=== PATIENT | female | born 1985 | race Asian ===

== ENCOUNTER 2016-07-04 19:59 | Emergency (ER) | payer OTHER ==
[~2016-07-04] VITALS: Ht 165.1 cm; Wt 57.2 kg
[2016-07-04 20:05] VITALS: TEMP 36.8; Ht 165.1 cm; Wt 57.2 kg
[2016-07-04] MEDS ORDERED: SODIUM CHLORIDE 0.9% 1000ML 1,000 ML IV STA (22:08)
[2016-07-04] MEDS ORDERED: OPTIRAY 320 IV PRN (22:15)
[2016-07-04] MEDS ORDERED: MULT-513 PO (22:31)
[2016-07-04 22:36] LABS: BASO % 0.2 %; BASO ABS # 0.01 K/uL (0-0.2); COMPLETE YES; EOS % 0.7 %; HEMATOCRIT 37.8 % (37-47); LYMPH % 44.9 %; LYMPH ABS # 2.47 K/uL (1.2-3.4); MEAN CELL VOLUME 89.8 fL (80-100); MEAN CORPUSCULAR HEMOGLOBIN 30.6 pg (25-34); MEAN CORPUSCULAR HGB CONC 34.1 g/dl (32-36); MEAN PLATELET VOLUME 10.8 fL (7.4-10.4); MONO % 8.5 %; NEUT % 45.7 %; PLATELET COUNT 198 K/uL (130-400); RED BLOOD COUNT 4.21 M/uL (4.2-5.4)
[2016-07-04 22:52] LABS: BUN/CREATININE RATIO 12.3 (10-20); CREATININE 0.53 mg/dl (0.60-1.20); POTASSIUM 3.4 mmol/L (3.5-5.1)
[2016-07-04 22:55] LABS: ALB/GLOB RATIO 1.3 (0.9-2)
[2016-07-05 01:10] LABS: URINE APPEARANCE CLEAR (CLEAR); URINE BILIRUBIN NEG (NEG); URINE COLOR YELLOW; URINE NITRITE NEG (NEG); URINE PH 6.5 (4.5-7.5); URINE SPECIFIC GRAVITY 1.005 (1.000-1.030); UROBILINOGEN NEG (NEG); ZZUR CULT IF INDIC CLEAN CATCH YES
[2016-07-05 01:11] LABS: MANUAL MICROSCOPIC REQUIRED? NO; REVIEW REQ? NO
--- NOTE | 2016-07-05 02:09 | EMERGENCY ROOM VISIT NOTE ---
History First contact with patient: 21:59 Chief Complaint: ABDOMINAL PAIN Stated Complaint: PAIN IN STOMACH Nursing Triage Summary: abd pain started today no n/v/d. History of Present Illness The patient is a 31 year old female who presents to the Emergency Department by private vehicle for evaluation of her RIGHT lower quadrant abdominal pain. She reports that this afternoon she developed pain in the lower abdomen with associated lightheadedness. She reports feeling nauseated, but has not vomited. She denies any bowel movements or diarrheal stools. She reports increasing pain in the RIGHT lower quadrant. She rates her current discomfort as a 4/10. She reports no previous surgeries to the abdomen. She denies any burning with urination or blood in her urine. She denies any chance for . She denies any chest pain, palpitations, shortness of breath, hematemesis, hematochezia, melena, hematuria, or dysuria. Review of Systems A complete 10-point Review of Systems was discussed with the patient, with pertinent positives and negatives listed in the History of Present Illness. All remaining Review of Systems questions can be considered negative unless otherwise specified. Past Medical/Surgical History Medical Problems: (1) History of - depression Family History Patient reports no known family medical history. Social History Smoking Status: Never Smoker Smokeless Tobacco Use: No Alcohol Use: none Drug Use: none Marital Status: single Housing Status: lives with roommate Occupation Status: [employer] student Current/Historical Medications Scheduled Multivitamins/Minerals (Mvi With Minerals), 1 TAB PO DAILY Allergies Coded Allergies: No Known Allergies (Unverified , 02/01/16) Physical Exam Vital Signs Date Time Temp Pulse Resp B/P Pulse Ox O2 Delivery O2 Flow Rate FiO2 07/05/16 02:24 65 18 99/62 98 07/04/16 23:51 104/65 07/04/16 20:05 36.8 69 18 121/85 100 Room Air Pain Rating (0-10): 4 Physical Exam VITAL SIGNS - Vital signs and nursing notes were reviewed. GENERAL - 31-year-old female appearing her stated age who is in no acute distress. Communicates well with provider and answers questions appropriately. LUNGS - Chest wall symmetric without accessory muscle use, intercostals retractions, or central cyanosis. Normal vesicular breath sounds CTA B/L. No wheezes, rales, or rhonchi appreciated. CARDIAC - RRR with S1/S2. No murmur, rubs, or gallops appreciated. ABDOMEN - Abdominal contour flat and without pulsations or visible masses. Negative Mil[place]'s or Funez Araiza's Signs. BS normoactive all four quadrants. Moderate tenderness to palpation appreciated in the RIGHT lower quadrant. No guarding. No Rebound Tenderness. Negative Rovsing's. Negative Juan's. No palpable masses, hepatosplenomegaly, or ascites noted. PSYCH - A&Ox3 and cooperates fully with examiner. Pt is very pleasant and interacts well with examiner. Medical Decision & Procedures ER Provider Diagnostic Interpretation: Radiological imaging and reports were reviewed by myself. Radiologist's Interpretation per [facility] as follows: US APPENDIX: Appendix not visualized, making evaluation nondiagnostic for acute appendicitis. Small amount of free fluid in the right lower quadrant. CT ABDOMEN & PELVIS: The appendix is normal in size, fills with contrast, and is without evidence of surrounding inflammatory change. Mild relative thickening of the tip of the appendix, but still within normal limits. Small amount of free fluid in the pelvis, nonspecific and possibly physiologic in a premenopausal female. Focal enhancement at the left adnexa may represent an involuting corpus luteal cyst. Ovaries are not enlarged. Uterus is retroflexed. Mild prominence of the renal collecting system bilaterally, but no evidence of stone or hydroureter. Persistent lobulation of the kidneys. Solid organs otherwise unremarkable. No bowel obstruction. Laboratory Results 07/04/16 22:15 Red Blood Count 4.21, Mean Corpuscular Volume 89.8, Mean Corpuscular Hemoglobin 30.6, Mean Corpuscular Hemoglobin Concent 34.1, Mean Platelet Volume 10.8, Neutrophils (%) (Auto) 45.7, Lymphocytes (%) (Auto) 44.9, Monocytes (%) (Auto) 8.5, Eosinophils (%) (Auto) 0.7, Basophils (%) (Auto) 0.2, Neutrophils # (Auto) 2.51, Lymphocytes # (Auto) 2.47, Monocytes # (Auto) 0.47, Eosinophils # (Auto) 0.04, Basophils # (Auto) 0.01 07/04/16 22:15 Test 07/04/16 22:15 07/05/16 00:50 White Blood Count 5.50 K/uL (4.8-10.8) Red Blood Count 4.21 M/uL (4.2-5.4) Hemoglobin 12.9 g/dL (12.0-16.0) Hematocrit 37.8 % (37-47) Mean Corpuscular Volume 89.8 fL (80-100) Mean Corpuscular Hemoglobin 30.6 pg (25-34) Mean Corpuscular Hemoglobin Concent 34.1 g/dl (32-36) Platelet Count 198 K/uL (130-400) Mean Platelet Volume 10.8 fL (7.4-10.4) Neutrophils (%) (Auto) 45.7 % Lymphocytes (%) (Auto) 44.9 % Monocytes (%) (Auto) 8.5 % Eosinophils (%) (Auto) 0.7 % Basophils (%) (Auto) 0.2 % Neutrophils # (Auto) 2.51 K/uL (1.4-6.5) Lymphocytes # (Auto) 2.47 K/uL (1.2-3.4) Monocytes # (Auto) 0.47 K/uL (0.11-0.59) Eosinophils # (Auto) 0.04 K/uL (0-0.5) Basophils # (Auto) 0.01 K/uL (0-0.2) RDW Standard Deviation 41.8 fL (36.4-46.3) RDW Coefficient of Variation 12.9 % (11.5-14.5) Immature Granulocyte % (Auto) 0.0 % Immature Granulocyte # (Auto) 0.00 K/uL (0.00-0.02) Anion Gap 7.0 mmol/L (3-11) Est Creatinine Clear Calc Drug Dose 137.1 ml/min Estimated GFR () 145.6 Estimated GFR (Non- 125.6 BUN/Creatinine Ratio 12.3 (10-20) Calcium Level 9.0 mg/dl (8.5-10.1) Magnesium Level 2.0 mg/dl (1.8-2.4) Total Bilirubin 0.7 mg/dl (0.2-1) Aspartate Amino Transf (AST/SGOT) 33 U/L (15-37) Alanine Aminotransferase (ALT/SGPT) 58 U/L (12-78) Alkaline Phosphatase 58 U/L (45-117) Total Protein 7.8 gm/dl (6.4-8.2) Albumin 4.4 gm/dl (3.4-5.0) Globulin 3.4 gm/dl (2.5-4.0) Albumin/Globulin Ratio 1.3 (0.9-2) Lipase 130 U/L (73-393) Urine Color YELLOW Urine Appearance CLEAR (CLEAR) Urine pH 6.5 (4.5-7.5) Urine Specific [place] 1.005 (1.000-1.030) Urine Protein NEG (NEG) Urine Glucose (UA) NEG (NEG) Urine Ketones 2+ (NEG) Urine Occult Blood TRACE (NEG) Urine Nitrite NEG (NEG) Urine Bilirubin NEG (NEG) Urine Urobilinogen NEG (NEG) Urine Leukocyte Esterase LARGE (NEG) Urine WBC (Auto) 10-30 /hpf (0-5) Urine RBC (Auto) 0-4 /hpf (0-4) Urine Hyaline Casts (Auto) 1-5 /lpf (0-5) Urine Epithelial Cells (Auto) 10-20 /lpf (0-5) Urine Bacteria (Auto) NEG (NEG) Urine Test NEG (NEG) Medications Administered Medications (Trade) Dose Ordered Sig/Dawson Route Start Time Stop Time Status Last Admin Dose Admin Sodium Chloride (Nss 1000ml) 1,000 ml @ 125 mls/hr Q8H STAT IV 07/04/16 22:08 07/05/16 03:31 DC 07/04/16 23:52 125 MLS/HR ED Course Patient was seen and evaluated by myself. Labs were drawn, saline lock in place. Patient was hydrated with normal saline at a rate of 125 mL per hour. Patient declines anything for pain. Abdominal ultrasound and CT of the abdomen/ pelvis ordered. Laboratory results demonstrate no acute leukocytosis, worrisome anemia, or bandemia. The patient has no significant electrolyte abnormalities. Urinalysis does not suggest infection. Ultrasound was not diagnostic. CT results demonstrate no acute findings. Laboratory results and imaging studies were reviewed with the patient who acknowledges understanding. The patient was educated on worrisome symptoms for return visit to the emergency department. Patient discharged home afebrile and in good condition. Medical Decision Given the patient's presentation and stated complaints, I did elect to perform the above-mentioned workup. The patient presents with pain in the RIGHT lower quadrant. She has no fever. She has no leukocytosis. She has no rebound guarding or rigidity. CT and ultrasounds demonstrate no acute findings otherwise. Patient was educated on today's findings. She was provided a note for class. She was educated on worrisome symptoms for return visit to the emergency department. Patient discharged home afebrile and in good condition. In the evaluation and treatment of this patient, the following differential diagnoses were considered: Appendicitis, Diverticulitis, Diverticulosis, Colitis , Ischemic Colitis, Inflammatory Bowel Disease, Irritable Bowel Disease, Ovarian Torsion, , Ectopic , Kidney Stone, Pyelonephritis, Hydronephrosis, Cholecystitis, Ascending Cholangitis, Choledocholithiasis, GERD. Impression Primary Impression: Abdominal pain Departure Information Dispostion Home / Self-Care Condition GOOD Referrals No Doctor, Assigned (PCP) Patient Instructions Abdominal Pain - [facility], [facility] Additional Instructions You have been treated in the Emergency Department your Abdominal Pain. Laboratory results and imaging studies have ruled out any emergent causes for your abdominal pain which would warrant admission or surgery. For pain control, you can use the following xoei-tow-wgihrkn medicines (if >12 yo): - Regular strength (325mg/tab) Tylenol (acetaminophen) 2 tabs every 4-6 hours as needed. Do not exceed 12 tablets in a 24 hour period. Avoid taking more than 4 grams (4000 mg) of Tylenol per day. This includes any other sources of acetaminophen you may take on a regular basis. - Regular strength (200 mg/tab) Advil (ibuprofen) 1-2 tabs every 4-6 hours as needed. Do not exceed a dose of 3200 mg per day. Drink plenty of water and stay well hydrated. As with any trip to the Emergency Department, you should follow-up with your Primary Care Provider from today's visit. Return to the emergency department if your symptoms persist despite treatment plan outlined above or if the following symptoms occur: increased fevers, chills , worsening nausea/vomiting, blood in your stool or urine. Problem Qualifiers Primary Impression: Abdominal pain Abdominal location: right lower quadrant Qualified Codes: R10.31 - Right lower quadrant pain
[2016-07-05 02:24] VITALS: BP 99/62; PULSE 65; O2SAT 98
--- NOTE | 2016-07-05 06:36 | DIAGNOSTIC IMAGING REPORT ---
APPENDIX ULTRASOUND HISTORY: Right lower quadrant pain. COMPARISON: None. FINDINGS: The appendix was not visualized. A small amount of fluid was noted within the right lower quadrant. IMPRESSION: 1. Nonvisualization of the appendix. This study is nondiagnostic in regards to evaluation for acute appendicitis. 2. Small amount of free fluid within the right lower quadrant. Electronically signed by: Stephan Delarosa M.D. 07/05/2016 6:35 AM Dictated Date/Time: 07/05/2016 6:34 AM
--- NOTE | 2016-07-05 06:53 | DIAGNOSTIC IMAGING REPORT ---
CT OF THE ABDOMEN AND PELVIS WITH CONTRAST CLINICAL HISTORY: Right lower quadrant abdominal pain. COMPARISON STUDY: Right lower quadrant ultrasound July 04, 2016. TECHNIQUE: Following IV administration of 91 mL of Optiray-320, axial images of the abdomen and pelvis were obtained from the lung bases to the proximal femurs. Images were reviewed in the axial, sagittal, and coronal planes. IV contrast was administered without complication. Oral contrast was administered. CT DOSE: 286.60 mGycm FINDINGS: No pneumatosis, free air or portal venous gas is present. The liver, spleen, adrenal glands and pancreas are unremarkable. There is mild prominence of both collecting systems which is symmetric. Both nephrograms are symmetric. There is no evidence for a bowel obstruction. The appendix is normal. A small amount of fluid within the pelvis is noted. No lymphadenopathy is noted. There is no biliary or pancreatic ductal dilatation. No peripancreatic or pericholecystic infiltration is present. Skeletal structures are unremarkable. IMPRESSION: 1. Normal appendix. 2. Small amount of fluid within the pelvis. 3. Prominence of both collecting systems, a finding of doubtful significance. Electronically signed by: Stephan Delarosa M.D. 07/05/2016 6:52 AM Dictated Date/Time: 07/05/2016 6:48 AM
== END 2016-07-05 02:24 | disposition home or self-care (01) ==
LOC: C.EDB 20:00 → C.EDC 07-05 02:24
DX: R10.31 Right lower quadrant pain (principal); R42 Dizziness and giddiness; R11.0 Nausea; Z86.59 Personal history of other mental and behavioral disorders

== ENCOUNTER 2016-07-06 23:52 | Emergency (ER) | payer OTHER ==
[~2016-07-06] VITALS: Ht 165.1 cm; Wt 57.9 kg
[~2016-07-06 23:52] MED LIST: MULT-513 PO
[2016-07-07 00:01] VITALS: TEMP 36.4; Ht 165.1 cm; Wt 57.9 kg
[2016-07-07] MEDS ORDERED: SODIUM CHLORIDE 0.9% 1000ML 1,000 ML IV STA (00:39)
[2016-07-07] MEDS ORDERED: ONDANSETRON INJ 2 MG/ML 2 ML VIAL IV STA (00:39)
[2016-07-07 01:00] LABS: BASO % 0.2 %; BASO ABS # 0.01 K/uL (0-0.2); COMPLETE YES; EOS % 0.7 %; HEMATOCRIT 33.2 % (37-47); IG% 0.2 %; LYMPH % 43.8 %; LYMPH ABS # 2.38 K/uL (1.2-3.4); MEAN CELL VOLUME 87.4 fL (80-100); MEAN CORPUSCULAR HEMOGLOBIN 30.5 pg (25-34); MEAN CORPUSCULAR HGB CONC 34.9 g/dl (32-36); MEAN PLATELET VOLUME 10.9 fL (7.4-10.4); NEUT % 43.1 %; PLATELET COUNT 200 K/uL (130-400); WHITE BLOOD COUNT 5.43 K/uL (4.8-10.8)
[2016-07-07 01:08] LABS: BUN/CREATININE RATIO 17.6 (10-20); CALCIUM 8.4 mg/dl (8.5-10.1); CREATININE 0.55 mg/dl (0.60-1.20); POTASSIUM 3.5 mmol/L (3.5-5.1)
[2016-07-07 01:11] LABS: ALB/GLOB RATIO 1.3 (0.9-2)
[2016-07-07 01:30] LABS: URINE APPEARANCE CLEAR (CLEAR); URINE BILIRUBIN NEG (NEG); URINE COLOR YELLOW; URINE EPITHELIAL CELL AUTO 20-30 /lpf (0-5); URINE NITRITE NEG (NEG); URINE PH 5.5 (4.5-7.5); URINE SPECIFIC GRAVITY 1.024 (1.000-1.030); UROBILINOGEN NEG (NEG); ZZUR CULT IF INDIC CLEAN CATCH NO
[2016-07-07] MEDS ORDERED: ONDANSETRON HOME PACK 4MG OD TAB PO ONE (01:30)
[2016-07-07 01:36] LABS: MANUAL MICROSCOPIC REQUIRED? NO; REVIEW REQ? NO
--- NOTE | 2016-07-07 01:44 | EMERGENCY ROOM VISIT NOTE ---
History First contact with patient: 00:29 Chief Complaint: VOMITING Stated Complaint: VOMITING Nursing Triage Summary: pt reports nausea from Sunday. Unable to eat, "I feel uncomfortable in my body". pt also reports "strange poop color, like green and string". RLQ pain History of Present Illness The patient is a 31 year old female who presents to the Emergency Department by private vehicle for evaluation of her ongoing diarrhea and decreased by mouth intake. She was seen in this facility earlier this week and had unremarkable imaging studies performed. She reports occasional pain in the lower abdomen. She reports no fevers or chills. She denies any vomiting. She does report occasional nausea. She rates her current discomfort as an 8/10. She denies any headaches, distance, lightheadedness, chest pain, palpitations, short of breath, hematemesis, hematochezia, melena, hematuria, or dysuria. Review of Systems A complete 10-point Review of Systems was discussed with the patient, with pertinent positives and negatives listed in the History of Present Illness. All remaining Review of Systems questions can be considered negative unless otherwise specified. Past Medical/Surgical History Medical Problems: (1) History of - depression Family History Patient reports no known family medical history. Social History Smoking Status: Never Smoker Smokeless Tobacco Use: No Alcohol Use: none Drug Use: none Marital Status: single Housing Status: lives with roommate Occupation Status: [employer] student Current/Historical Medications Scheduled Multivitamins/Minerals (Mvi With Minerals), 1 TAB PO DAILY Allergies Coded Allergies: No Known Allergies (Unverified , 07/07/16) Physical Exam Vital Signs Date Time Temp Pulse Resp B/P Pulse Ox O2 Delivery O2 Flow Rate FiO2 07/07/16 02:04 81 18 119/73 100 07/07/16 00:01 36.4 88 16 114/77 99 Room Air Pain Rating (0-10): 8 Physical Exam VITAL SIGNS - Vital signs and nursing notes were reviewed. GENERAL - 31-year-old female appearing younger than her her stated age who is in no acute distress. Communicates well with provider and answers questions appropriately. LUNGS - Chest wall symmetric without accessory muscle use, intercostals retractions, or central cyanosis. Normal vesicular breath sounds CTA B/L. No wheezes, rales, or rhonchi appreciated. CARDIAC - RRR with S1/S2. No murmur, rubs, or gallops appreciated. ABDOMEN - Abdominal contour flat and without pulsations or visible masses. BS normoactive all four quadrants. No tenderness to palpation appreciated throughout. No guarding. No Rebound Tenderness. Negative Rovsing's. Negative Juan's. No palpable masses, hepatosplenomegaly, or ascites noted. PSYCH - A&Ox3 and cooperates fully with examiner. Pt is very pleasant and interacts well with examiner. Medical Decision & Procedures Laboratory Results 07/07/16 00:35 Red Blood Count 3.80, Mean Corpuscular Volume 87.4, Mean Corpuscular Hemoglobin 30.5, Mean Corpuscular Hemoglobin Concent 34.9, Mean Platelet Volume 10.9, Neutrophils (%) (Auto) 43.1, Lymphocytes (%) (Auto) 43.8, Monocytes (%) (Auto) 12.0, Eosinophils (%) (Auto) 0.7, Basophils (%) (Auto) 0.2, Neutrophils # (Auto ) 2.34, Lymphocytes # (Auto) 2.38, Monocytes # (Auto) 0.65, Eosinophils # (Auto ) 0.04, Basophils # (Auto) 0.01 07/07/16 00:35 Test 07/07/16 00:35 White Blood Count 5.43 K/uL (4.8-10.8) Red Blood Count 3.80 M/uL (4.2-5.4) Hemoglobin 11.6 g/dL (12.0-16.0) Hematocrit 33.2 % (37-47) Mean Corpuscular Volume 87.4 fL (80-100) Mean Corpuscular Hemoglobin 30.5 pg (25-34) Mean Corpuscular Hemoglobin Concent 34.9 g/dl (32-36) Platelet Count 200 K/uL (130-400) Mean Platelet Volume 10.9 fL (7.4-10.4) Neutrophils (%) (Auto) 43.1 % Lymphocytes (%) (Auto) 43.8 % Monocytes (%) (Auto) 12.0 % Eosinophils (%) (Auto) 0.7 % Basophils (%) (Auto) 0.2 % Neutrophils # (Auto) 2.34 K/uL (1.4-6.5) Lymphocytes # (Auto) 2.38 K/uL (1.2-3.4) Monocytes # (Auto) 0.65 K/uL (0.11-0.59) Eosinophils # (Auto) 0.04 K/uL (0-0.5) Basophils # (Auto) 0.01 K/uL (0-0.2) RDW Standard Deviation 41.0 fL (36.4-46.3) RDW Coefficient of Variation 12.8 % (11.5-14.5) Immature Granulocyte % (Auto) 0.2 % Immature Granulocyte # (Auto) 0.01 K/uL (0.00-0.02) Urine Color YELLOW Urine Appearance CLEAR (CLEAR) Urine pH 5.5 (4.5-7.5) Urine Specific [place] 1.024 (1.000-1.030) Urine Protein NEG (NEG) Urine Glucose (UA) 1+ (NEG) Urine Ketones NEG (NEG) Urine Occult Blood NEG (NEG) Urine Nitrite NEG (NEG) Urine Bilirubin NEG (NEG) Urine Urobilinogen NEG (NEG) Urine Leukocyte Esterase TRACE (NEG) Urine WBC (Auto) 1-5 /hpf (0-5) Urine RBC (Auto) 0-4 /hpf (0-4) Urine Hyaline Casts (Auto) 1-5 /lpf (0-5) Urine Epithelial Cells (Auto) 20-30 /lpf (0-5) Urine Bacteria (Auto) NEG (NEG) Anion Gap 8.0 mmol/L (3-11) Est Creatinine Clear Calc Drug Dose 132.1 ml/min Estimated GFR () 143.8 Estimated GFR (Non- 124.1 BUN/Creatinine Ratio 17.6 (10-20) Calcium Level 8.4 mg/dl (8.5-10.1) Total Bilirubin 0.3 mg/dl (0.2-1) Aspartate Amino Transf (AST/SGOT) 21 U/L (15-37) Alanine Aminotransferase (ALT/SGPT) 43 U/L (12-78) Alkaline Phosphatase 62 U/L (45-117) Total Protein 7.2 gm/dl (6.4-8.2) Albumin 4.0 gm/dl (3.4-5.0) Globulin 3.2 gm/dl (2.5-4.0) Albumin/Globulin Ratio 1.3 (0.9-2) Medications Administered Medications (Trade) Dose Ordered Sig/Dawson Route Start Time Stop Time Status Last Admin Dose Admin Sodium Chloride (Nss 1000ml) 1,000 ml @ 999 mls/hr Q1H1M STAT IV 07/07/16 00:39 07/07/16 01:39 DC 07/07/16 00:39 999 MLS/HR Ondansetron HCl (Zofran Inj) 4 mg NOW STAT IV 07/07/16 00:39 07/07/16 00:41 DC 07/07/16 00:39 4 MG Ondansetron HCl (ZOFRAN ODT 4MG Home Pack) 1 homepack UD ONCE PO 07/07/16 01:30 07/07/16 01:31 DC 07/07/16 01:30 1 HOMEPACK ED Course Patient was seen and evaluated by myself. Previous emergency department visit notes were reviewed. Labs were drawn, saline lock in place. The patient received 4 mg Zofran intravenously and 1 L of normal saline. Laboratory results demonstrate no acute leukocytosis, worrisome anemia, or bandemia. Urinalysis does not suggest infection. Patient was educated on laboratory results. She was educated on following up with [facility] from today's visit. She was educated on worrisome symptoms for return visit to the emergency department. Patient discharged home afebrile and in good condition. Medical Decision Given the patient's presentation and stated complaints, I did elect to perform the above-mentioned workup. The patient presents today with ongoing symptoms of nausea as well as diarrhea. She complains of pain. Abdomen is soft and nontender to palpation. She had an unremarkable evaluation a few days ago with unremarkable imaging studies. Repeat labs are negative. I questioned the patient is utilizing the emergency Department for notes for school as this did appear to be her primary concern. Regardless, her symptoms are not concerning this point in her labs are unremarkable. Patient was educated on worrisome symptoms for return visit to the emergency department. Patient discharged home afebrile and in good condition. In the evaluation and treatment of this patient, the following differential diagnoses were considered: Appendicitis, diverticulitis, diverticulosis, ovarian torsion, ruptured ovarian cyst, UTI, or truancy. Impression Primary Impression: Diarrhea Additional Impressions: Vomiting Abdominal pain Departure Information Dispostion Home / Self-Care Condition GOOD Referrals No Doctor, Assigned (PCP) Patient Instructions My [facility] Additional Instructions Follow-up with [facility] from today's visit. Return for any changing or worsening symptoms. Problem Qualifiers Primary Impression: Diarrhea Diarrhea type: unspecified type Qualified Codes: R19.7 - Diarrhea, unspecified Additional Impressions: Vomiting Vomiting type: unspecified Vomiting Intractability: non-intractable Nausea presence: with nausea Qualified Codes: R11.2 - Nausea with vomiting, unspecified Abdominal pain Abdominal location: right lower quadrant Qualified Codes: R10.31 - Right lower quadrant pain
[2016-07-07 02:04] VITALS: BP 119/73; PULSE 81; O2SAT 100
[2017-02-15] MEDS ORDERED: MULT-513 PO (21:08)
[2017-02-16] MEDS ORDERED: CEPH500C2 PO (00:55)
== END 2016-07-07 02:05 | disposition home or self-care (01) ==
LOC: C.EDB 23:53 → C.EDA 07-07 02:05
DX: R19.7 Diarrhea, unspecified (principal); R11.10 Vomiting, unspecified; R10.9 Unspecified abdominal pain; F32.9 Major depressive disorder, single episode, unspecified

== ENCOUNTER 2016-07-22 22:49 | Emergency (ER) | payer OTHER ==
[~2016-07-22] VITALS: Ht 165.1 cm; Wt 59.0 kg
[2016-07-22 22:53] VITALS: TEMP 36.9; Ht 165.1 cm; Wt 59.0 kg
[2016-07-22] MEDS ORDERED: IBUPROFEN 600 MG TAB PO STA (23:15)
--- NOTE | 2016-07-22 23:16 | EMERGENCY ROOM VISIT NOTE ---
History Report prepared by Miranda: Belle Liang Under the Supervision of: Dr. Jaden Mo M.D. First contact with patient: 23:03 Chief Complaint: FALL Stated Complaint: RT LEG/ANKLE/HAND PAIN,POSSIBLE HEAD History of Present Illness The patient is a 31 year old female who presents to the Emergency Room with complaints of a fall that occurred prior to arrival. She reports she fell down some steps earlier tonight. She landed on her hands and knees. She complains of bilateral leg pain and hand pain, rating her discomfort as a 10/10. She can still bend both ankles, but can only bend her left knee. Bending the right knee causes too much pain. She denies any hip pain. She can bend all of fingers, but notes they are "a little sore" from abrasions she sustained during the fall. 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 A total of 10 systems reviewed and were otherwise negative. Past Medical & Surgical Medical Problems: (1) No significant past medical history Social History Smoking Status: Never Smoker Alcohol Use: occasionally Drug Use: none Marital Status: single Housing Status: lives alone Occupation Status: [employer] student Current/Historical Medications No Active Prescriptions or Reported Meds Allergies Coded Allergies: No Known Allergies (Unverified , 07/22/16) Physical Exam Vital Signs Date Time Temp Pulse Resp B/P Pulse Ox O2 Delivery O2 Flow Rate FiO2 07/23/16 00:21 71 20 115/70 100 07/22/16 22:53 36.9 71 20 127/86 99 Room Air Physical Exam GENERAL: Patient is a healthy-appearing well-nourished 31 year old female HEAD: Normocephalic atraumatic EYES: Ocular movements intact pupils equal and react to light OROPHARYNX mucous membranes are moist no exudates present no erythema or edema present NECK: Supple no nuchal rigidity CHEST: Good equal expansion LUNGS: Clear and equal to auscultation CARDIAC: Normal S1 and S2 ABDOMEN: Soft nontender no guarding BACK: No CVA tenderness EXTREMITIES: Patient can move the right hip and right ankle free from pain. Right foot is neurovascularly intact. She complains of pain when bending right knee. Road rash to bilateral hands. She complains of pain to the left 4th finger , she is able to bend this finger. Normal muscle strength in all groups no clubbing cyanosis or edema NEURO: Patient is following commands is answering questions appropriately. Alert and oriented x3 Cranial Nerves 2-12 grossly intact Medical Decision & Procedures ER Provider Diagnostic Interpretation: These X-Rays were reviewed and interpreted by myself as we do not have a radiologist on staff overnight. FINGER X-RAY, 3 VIEW, LEFT 4TH FINGER There is no evidence of acute fracture, dislocation or subluxation. KNEE X-RAY, 2 VIEW, RIGHT KNEE There is no evidence of acute fracture, dislocation or subluxation. Medications Administered Medications (Trade) Dose Ordered Sig/Dawson Route Start Time Stop Time Status Last Admin Dose Admin Ibuprofen (Motrin Tab) 600 mg NOW STAT PO 07/22/16 23:15 07/22/16 23:17 DC 07/22/16 23:23 600 MG ED Course 2308: Past medical records reviewed. The patient was evaluated in room A2. A complete history and physical examination was performed. 2315: Ibuprofen 600 mg PO. 0000: I reevaluated the patient. She is feeling better. I discussed her results and discharge instructions and she verbalized complete understanding and agreement. Medical Decision This is a 31-year-old female who presents emergency department after a fall. The patient is complaining of abrasions to her hands as well as right knee pain. The patient was sent for x-rays as above. She'll be placed on crutches as well as a splint for her finger. I recommended that the patient follow-up with orthopedics if she still continue to have pain. The patient was given ibuprofen in the emergency department. Repeat examination revealed improvement patient's symptoms. Patient was in agreement with the treatment plan. Impression Primary Impression: Fall Additional Impressions: Knee pain Finger pain Scribe Attestation The scribe's documentation has been prepared under my direction and personally reviewed by me in its entirety. I confirm that the note above accurately reflects all work, treatment, procedures, and medical decision making performed by me. Departure Information Dispostion Home / Self-Care Prescriptions No Active Prescriptions or Reported Meds Referrals No Doctor, Assigned (PCP) Patient Instructions ED Knee Pain [facility], My [facility], Swelling Knee Pain Reduce Additional Instructions Follow up with DR Velez's office for continued pain Take 600 mg of ibuprofen every 6 hours as needed You have been examined and treated today on an emergency basis only. This is not a substitute for, or an effort to provide, complete comprehensive medical care. It is impossible to recognize and treat all injuries or illnesses in a single emergency department visit. It is therefore important that you follow up closely with [facility]. Call as soon as possible for an appointment. Thank you for your time and consideration. I look forward to speaking with you again soon. Please don't hesitate to call us if you have any questions. Problem Qualifiers Primary Impression: Fall Encounter type: initial encounter Qualified Codes: W19.XXXA - Unspecified fall, initial encounter Additional Impressions: Knee pain Laterality: right Chronicity: acute Qualified Codes: M25.561 - Pain in right knee Finger pain Laterality: left Qualified Codes: M79.645 - Pain in left finger(s)
[2016-07-23 00:21] VITALS: BP 115/70; PULSE 71; O2SAT 100
--- NOTE | 2016-07-23 07:55 | DIAGNOSTIC IMAGING REPORT ---
LEFT FOURTH FINGER 3 VIEWS CLINICAL HISTORY: Fall with fourth finger pain. FINDINGS: 3 views of the left fourth finger are obtained. No prior studies are available for comparison at the time of dictation. The skeletal structures are well mineralized. No fracture is seen. The fourth metacarpophalangeal and interphalangeal joints are well-maintained. Mild soft tissue swelling is suggested around the proximal interphalangeal joint. IMPRESSION: Mild soft tissue swelling with no radiographic evidence of fracture in the left fourth finger. Electronically signed by: Jeffrey Lance M.D. 07/23/2016 7:53 AM Dictated Date/Time: 07/23/2016 7:52 AM
--- NOTE | 2016-07-23 07:56 | DIAGNOSTIC IMAGING REPORT ---
RIGHT KNEE 2 VIEWS CLINICAL HISTORY: Fall with right knee pain. FINDINGS: AP and crosstable lateral views of the right knee are obtained. No prior studies are available for comparison at the time of dictation. The skeletal structures are well mineralized. No fracture is seen. The joint spaces of the knee appear well-maintained. Mild prepatellar soft tissue swelling is noted. A small joint effusion is suspected. Dermal calcifications are noted below the patella. IMPRESSION: Prepatellar soft tissue swelling and small joint effusion. No fracture is seen. Electronically signed by: Jeffrey Lance M.D. 07/23/2016 7:54 AM Dictated Date/Time: 07/23/2016 7:53 AM
[2017-02-15] MEDS ORDERED: MULT-513 PO (21:08)
[2017-02-16] MEDS ORDERED: CEPH500C2 PO (00:55)
== END 2016-07-23 00:24 | disposition home or self-care (01) ==
LOC: EDBD 22:51 → C.EDB 22:51 → MERGE 22:51 → C.EDA 07-23 00:24
DX: M25.561 Pain in right knee (principal); M79.645 Pain in left finger(s); W10.9XXA Fall (on) (from) unspecified stairs and steps, initial encounter

== ENCOUNTER 2016-08-11 21:43 | Emergency (ER) | payer OTHER ==
[~2016-08-11] VITALS: Ht 165.1 cm; Wt 55.7 kg
[2016-08-11 21:53] VITALS: TEMP 36.3; Ht 165.1 cm; Wt 55.7 kg
[2016-08-11] MEDS ORDERED: KETOROLAC TROMETHAMINE 30 MG/ML VIAL IV STA (22:20)
[2016-08-11] MEDS ORDERED: SODIUM CHLORIDE 0.9% 1000ML 1,000 ML IV ONE (22:30)
[2016-08-11 22:51] LABS: BASO % 0.3 %; BASO ABS # 0.02 K/uL (0-0.2); COMPLETE YES; EOS % 0.8 %; HEMATOCRIT 37.1 % (37-47); IG% 0.2 %; LYMPH % 43.7 %; LYMPH ABS # 2.76 K/uL (1.2-3.4); MEAN CELL VOLUME 92.1 fL (80-100); MEAN CORPUSCULAR HEMOGLOBIN 30.3 pg (25-34); MEAN CORPUSCULAR HGB CONC 32.9 g/dl (32-36); MEAN PLATELET VOLUME 10.3 fL (7.4-10.4); MONO % 6.3 %; NEUT % 48.7 %; PLATELET COUNT 266 K/uL (130-400); RED BLOOD COUNT 4.03 M/uL (4.2-5.4); WHITE BLOOD COUNT 6.32 K/uL (4.8-10.8)
[2016-08-11 23:12] LABS: ALT/SGPT 21 U/L (12-78); AST/SGOT 14 U/L (15-37); BLOOD UREA NITROGEN 9 mg/dl (7-18); BUN/CREATININE RATIO 18.2 (10-20); CALCIUM 8.9 mg/dl (8.5-10.1); CARBON DIOXIDE 29 mmol/L (21-32); CHLORIDE 106 mmol/L (98-107); CREATININE 0.49 mg/dl (0.60-1.20); GLUCOSE 75 mg/dl (70-99); POTASSIUM 3.6 mmol/L (3.5-5.1); SODIUM 142 mmol/L (136-145)
[2016-08-11 23:23] LABS: ALB/GLOB RATIO 1.2 (0.9-2); ALKALINE PHOSPHATASE 58 U/L (45-117)
[2016-08-12] MEDS ORDERED: AMOX875T PO (01:20)
[2016-08-12] MEDS ORDERED: AMOXICIL/CLAVU 875MG HOME PACK PO ONE (01:30)
[2016-08-12 01:46] VITALS: BP 118/59; PULSE 62; O2SAT 100
--- NOTE | 2016-08-12 05:26 | DIAGNOSTIC IMAGING REPORT ---
CHEST 2 VIEWS ROUTINE CLINICAL HISTORY: Cough dyspnea COMPARISON STUDY: 02/01/2016 FINDINGS: The bones soft tissues and hemidiaphragms are normal. The cardiomediastinal silhouette is normal. The lungs are clear. The pulmonary vasculature is normal. IMPRESSION: Negative chest. Electronically signed by: Gio Costa M.D. 08/12/2016 5:25 AM Dictated Date/Time: 08/12/2016 5:25 AM
--- NOTE | 2016-08-12 05:29 | DIAGNOSTIC IMAGING REPORT ---
HEAD CT NONCONTRAST CT DOSE: 614.27 mGy.cm HISTORY: Mental status change Dizzy TECHNIQUE: Multiaxial CT images of the head were performed without the use of intravenous contrast. Comparison: None. Findings: The paranasal sinuses and mastoid air cells are clear. The calvarium and skull base are intact. The ventricles and sulci are within normal limits. There is no mass, hematoma, midline shift, or acute infarct. Impression: No acute intracranial abnormality. Several mucosal retention cysts of the maxillary sinuses Electronically signed by: Gio Costa M.D. 08/12/2016 5:28 AM Dictated Date/Time: 08/12/2016 5:27 AM
--- NOTE | 2016-08-12 07:28 | EMERGENCY ROOM VISIT NOTE ---
History First contact with patient: 22:12 Chief Complaint: DIZZY Stated Complaint: PAINFUL AND DIZZY,SICK IN STOMACH, BRAIN NOT FUNCT History of Present Illness The patient is a 31 year old female who presents to the Emergency Room with complaints of dizziness, cough, and upset stomach for the past one day. She does not report fever or chills. She has had some sinus congestion. She is without distinct chest pain or shortness of breath. She has been eating, drinking, and using bathroom as normal. The patient considers herself usually healthy and has not taken anything [id number] for her symptoms. Review of Systems More than 10 systems were reviewed and otherwise negative with the exception of history of present illness. Past Medical/Surgical History Medical Problems: (1) History of - depression (2) No significant past medical history Family History Patient reports no known family medical history. Social History Smoking Status: Never Smoker Alcohol Use: occasionally Drug Use: none Marital Status: single Housing Status: lives alone Occupation Status: [employer] student Current/Historical Medications Scheduled Amoxicillin & Pot Clavulanate (Augmentin 875-125 mg), 1 TAB PO BID Allergies Coded Allergies: No Known Allergies (Unverified , 07/07/16) Physical Exam Vital Signs Date Time Temp Pulse Resp B/P Pulse Ox O2 Delivery O2 Flow Rate FiO2 08/12/16 01:46 62 18 118/59 100 08/11/16 23:51 65 18 123/80 100 Room Air 08/11/16 22:45 65 110/79 67 114/89 08/11/16 21:53 36.3 57 19 110/69 100 Room Air Pain Rating (0-10): 0 Physical Exam VITALS: Vitals are noted on the nurse's note and reviewed by myself. Vital signs stable. GENERAL: Well-developed, well-nourished, female, who is in no acute distress and resting comfortably. Patient is cooperative with the examination. HEAD: Normocephalic atraumatic. EARS: External ear normal. External auditory canals clear, tympanic membranes pearly ruano without erythema or effusion bilaterally. EYES: Pupils equal round and reactive to light and accommodation. Conjunctivae without injection, sclerae without icterus. Extraocular movements intact. NOSE: Patent, turbinates without inflammation or discharge. MOUTH: Mucous membranes moist. Tonsils are not enlarged. Pharynx without erythema, blood, or exudate. Uvula midline. Airway patent. NECK: Supple without nuchal rigidity. No lymphadenopathy. No thyromegaly. Cervical spine is nontender. HEART: Regular rate and rhythm without murmurs gallops or rubs. LUNGS: Clear to auscultation bilaterally without wheezes, rales or rhonchi. No retractions or accessory muscle use. ABDOMEN: Positive normal bowel sounds x 4. Soft, nontender, without masses or organomegaly. No guarding or rebound tenderness. MUSCULOSKELETAL: No muscle atrophy, erythema, or edema noted. Full range of motion without joint tenderness in all extremities. No tenderness to palpation. Normal gait. Strength 5/5 throughout. NEURO: Patient was alert and oriented to person place and time. CN II through XII grossly intact. Medical Decision & Procedures ER Provider Diagnostic Interpretation: HEAD CT NONCONTRAST CT DOSE: 614.27 mGy.cm HISTORY: Mental status change Dizzy TECHNIQUE: Multiaxial CT images of the head were performed without the use of intravenous contrast. Comparison: None. Findings: The paranasal sinuses and mastoid air cells are clear. The calvarium and skull base are intact. The ventricles and sulci are within normal limits. There is no mass, hematoma, midline shift, or acute infarct. Impression: No acute intracranial abnormality. Several mucosal retention cysts of the maxillary sinuses CHEST 2 VIEWS ROUTINE CLINICAL HISTORY: Cough dyspnea COMPARISON STUDY: 02/01/2016 FINDINGS: The bones soft tissues and hemidiaphragms are normal. The cardiomediastinal silhouette is normal. The lungs are clear. The pulmonary vasculature is normal. IMPRESSION: Negative chest. Laboratory Results 08/11/16 22:40 Red Blood Count 4.03, Mean Corpuscular Volume 92.1, Mean Corpuscular Hemoglobin 30.3, Mean Corpuscular Hemoglobin Concent 32.9, Mean Platelet Volume 10.3, Neutrophils (%) (Auto) 48.7, Lymphocytes (%) (Auto) 43.7, Monocytes (%) (Auto) 6.3, Eosinophils (%) (Auto) 0.8, Basophils (%) (Auto) 0.3, Neutrophils # (Auto) 3.08, Lymphocytes # (Auto) 2.76, Monocytes # (Auto) 0.40, Eosinophils # (Auto) 0.05, Basophils # (Auto) 0.02 08/11/16 22:40 Test 08/11/16 22:40 White Blood Count 6.32 K/uL (4.8-10.8) Red Blood Count 4.03 M/uL (4.2-5.4) Hemoglobin 12.2 g/dL (12.0-16.0) Hematocrit 37.1 % (37-47) Mean Corpuscular Volume 92.1 fL (80-100) Mean Corpuscular Hemoglobin 30.3 pg (25-34) Mean Corpuscular Hemoglobin Concent 32.9 g/dl (32-36) Platelet Count 266 K/uL (130-400) Mean Platelet Volume 10.3 fL (7.4-10.4) Neutrophils (%) (Auto) 48.7 % Lymphocytes (%) (Auto) 43.7 % Monocytes (%) (Auto) 6.3 % Eosinophils (%) (Auto) 0.8 % Basophils (%) (Auto) 0.3 % Neutrophils # (Auto) 3.08 K/uL (1.4-6.5) Lymphocytes # (Auto) 2.76 K/uL (1.2-3.4) Monocytes # (Auto) 0.40 K/uL (0.11-0.59) Eosinophils # (Auto) 0.05 K/uL (0-0.5) Basophils # (Auto) 0.02 K/uL (0-0.2) RDW Standard Deviation 43.1 fL (36.4-46.3) RDW Coefficient of Variation 12.8 % (11.5-14.5) Immature Granulocyte % (Auto) 0.2 % Immature Granulocyte # (Auto) 0.01 K/uL (0.00-0.02) Anion Gap 7.0 mmol/L (3-11) Est Creatinine Clear Calc Drug Dose 144.9 ml/min Estimated GFR () 149.4 Estimated GFR (Non- 128.9 BUN/Creatinine Ratio 18.2 (10-20) Calcium Level 8.9 mg/dl (8.5-10.1) Total Bilirubin 0.4 mg/dl (0.2-1) Aspartate Amino Transf (AST/SGOT) 14 U/L (15-37) Alanine Aminotransferase (ALT/SGPT) 21 U/L (12-78) Alkaline Phosphatase 58 U/L (45-117) Troponin I < 0.015 ng/ml (0-0.045) Total Protein 7.5 gm/dl (6.4-8.2) Albumin 4.1 gm/dl (3.4-5.0) Globulin 3.4 gm/dl (2.5-4.0) Albumin/Globulin Ratio 1.2 (0.9-2) Thyroid Stimulating Hormone (TSH) 1.360 uIu/ml (0.300-4.500) Medications Administered Medications (Trade) Dose Ordered Sig/Dawson Route Start Time Stop Time Status Last Admin Dose Admin Sodium Chloride (Nss 1000ml) 1,000 ml @ 999 mls/hr Q1H1M ONCE IV 08/11/16 22:30 08/11/16 23:30 DC 08/11/16 22:48 999 MLS/HR Ketorolac Tromethamine (Toradol Inj) 15 mg NOW STAT IV 08/11/16 22:20 08/11/16 22:21 DC 08/11/16 22:50 15 MG Amoxicillin/ Clavulanate Potassium (Augmentin 875MG Home Pack) 1 homepack UD ONCE PO 08/12/16 01:30 08/12/16 01:31 DC 08/12/16 01:40 1 HOMEPACK ED Course Physical exam and history were performed. Nursing notes and EMR were reviewed. Patient appears to have vague dizziness with URI symptoms for the past one day. On examination the patient does not appear toxic. EKG was performed and was sinus bradycardia at 59 beats per minute without ischemia or ectopy. No change from previous of 02/13/2013. IV access was established and labs were obtained. Patient was hydrated with normal saline. Because of her symptoms. I did elect for CT scan of her head as well as a chest x-ray. The patient blood work is as above and was reviewed. She does not have significantly elevated white blood cell count, gross anemia, bandemia, or significant electrolyte imbalance. Troponin 1 is negative. Lipase and transaminases are nondiagnostic. TSH is euthyroid. The patient CT scan does not show acute findings. X-ray is without acute findings as well. Overall the patient appears well for discharge home. I will provide her a short course of Augmentin as I feel that some of her symptoms may be related to upper respiratory issues. The patient is to remain well hydrated and follow up with primary care physician for care and management. Patient was pleased with this plan of voice understanding. She rated her discomfort a 0/10 at the time of departure. The chart was completed utilizing [employer] Speech Voice Recognition Software. Grammatical errors, random word insertions, pronoun errors, and incomplete sentences are an occasional consequence of this system due to software limitations, ambient noise, and hardware issues. Any formal questions or concerns about the content, text, or information contained within the body of this dictation should be directly addressed to the provider for clarification. . Medical Decision Differential diagnosis: Etiologies such as viral syndrome, otitis, pharyngitis, pneumonia, influenza, meningitis, urinary tract infection, sepsis, bacteremia, as well as others were entertained. Impression Primary Impression: Dizziness Additional Impression: Sinusitis Departure Information Dispostion Home / Self-Care Condition GOOD Prescriptions Amoxicillin & Pot Clavulanate (Augmentin 875-125 mg) 1 Tab Tab 1 TAB PO BID for 9 Days, #18 TAB Prov: Neftaly Beckett PA-C 08/12/16 Forms HOME CARE DOCUMENTATION FORM, School Instructions, Additional Instructions: Patient was seen and evaluated today in the emergency department fo medical care. May return to work/school on 08/15/2016. Please excuse. IMPORTANT VISIT INFORMATION Patient Instructions My [facility] Additional Instructions You were seen and evaluated today on an emergency basis only. This is not a substitute for, or an effort to provide, complete comprehensive medical care. It is not possible to recognize and treat all injuries or illnesses in a single emergency department visit. For this reason it is recommended that you followup with your primary care physician in the next 3-4 days for recheck of your condition. For baseline pain relief you may alternate ibuprofen and acetaminophen every 4 hours for pain control. Take 600 mg ibuprofen (Advil) and then 4 hours later take 1000 mg acetaminophen (Tylenol). Do not take more than 3000 mg acetaminophen in a single day. Amoxicillin Clavulanate (Augmentin) 875mg: Take one pill twice daily for 10 total days for your infection. All antibiotics can cause diarrhea. If this occurs and you feel worse or it does not resolve in 1-2 days follow up with your doctor or return to the Emergency Department as this could be signs of serious underlying problems. Any medication can cause an allergic reaction, stop the pills immediately and return to the ER for rash, hives, breathing difficulties, or swelling. You are welcome to return to the emergency department anytime with new, worsening, or concerning symptoms. School Instructions Additional School Instructions: Patient was seen and evaluated today in the emergency department for medical care. May return to work/school on 08/15/2016. Please excuse. Problem Qualifiers
[2017-02-15] MEDS ORDERED: MULT-513 PO (21:08)
[2017-02-16] MEDS ORDERED: CEPH500C2 PO (00:55)
== END 2016-08-12 01:47 | disposition home or self-care (01) ==
LOC: C.EDB 21:44 → C.EDC 08-12 01:47
DX: R42 Dizziness and giddiness (principal); J32.9 Chronic sinusitis, unspecified; R05 Cough; Z86.59 Personal history of other mental and behavioral disorders

== ENCOUNTER 2017-01-12 14:18 | Emergency (ER) | payer OTHER ==
[~2017-01-12] VITALS: Ht 165.1 cm; Wt 53.6 kg
[2017-01-12 14:21] VITALS: TEMP 37; Ht 165.1 cm; Wt 53.6 kg
[2017-01-12 15:15] LABS: BASO % 0.2 %; BASO ABS # 0.01 K/uL (0-0.2); COMPLETE YES; EOS % 0.6 %; HEMATOCRIT 34.9 % (37-47); LYMPH % 36.7 %; LYMPH ABS # 1.87 K/uL (1.2-3.4); MEAN CELL VOLUME 90.9 fL (80-100); MEAN CORPUSCULAR HGB CONC 34.1 g/dl (32-36); MEAN PLATELET VOLUME 10.2 fL (7.4-10.4); MONO % 9.4 %; NEUT % 53.1 %; PLATELET COUNT 201 K/uL (130-400); RED BLOOD COUNT 3.84 M/uL (4.2-5.4)
[2017-01-12 15:38] LABS: BUN/CREATININE RATIO 14.9 (10-20); CALCIUM 8.7 mg/dl (8.5-10.1); CREATININE 0.53 mg/dl (0.60-1.20); POTASSIUM 3.8 mmol/L (3.5-5.1)
--- NOTE | 2017-01-12 15:46 | DIAGNOSTIC IMAGING REPORT ---
CHEST AND ABDOMEN 2 VIEWS HISTORY: Generalized abdominal pain. COMPARISON: Chest 08/11/2016. Abdomen and pelvis CT 07/05/2016. FINDINGS: The lungs are clear. The cardiomediastinal silhouette is within normal limits. There is no pneumoperitoneum or pneumatosis. The bowel gas pattern is unremarkable. No evidence for bowel obstruction. No pathologic calcifications. IMPRESSION: No acute cardiopulmonary process. No evidence for bowel obstruction. Electronically signed by: Anthony Gross M.D. 01/12/2017 3:45 PM Dictated Date/Time: 01/12/2017 3:42 PM
[2017-01-12 17:57] LABS: URINE APPEARANCE CLEAR (CLEAR); URINE BILIRUBIN NEG (NEG); URINE COLOR YELLOW; URINE EPITHELIAL CELL AUTO >30 /lpf (0-5); URINE NITRITE NEG (NEG); URINE PH 5.5 (4.5-7.5); URINE SPECIFIC GRAVITY 1.024 (1.000-1.030); UROBILINOGEN NEG (NEG)
[2017-01-12 17:59] LABS: MANUAL MICROSCOPIC REQUIRED? NO; REVIEW REQ? YES
[2017-01-12 18:09] VITALS: BP 99/59; PULSE 67; O2SAT 100
--- NOTE | 2017-01-12 22:31 | EMERGENCY ROOM VISIT NOTE ---
History First contact with patient: 14:30 Chief Complaint: ABDOMINAL PAIN Stated Complaint: SO PAINFUL IN STOMACH AND KEEP VOMITING Nursing Triage Summary: right abdominal pain. denies n/v. abnormal period History of Present Illness The patient is a 31 year old female who presents to the Emergency Room with complaints of lower abdominal pain, and dark red menstrual bleeding and bloody stool. The patient reports that she started to develop right lower quadrant pain this morning. When she did have a bowel movement, she noticed dark blood on the stool. She has also had recent menstrual dark blood, which is unusual for her. She has had mildly worsening abdominal discomfort with her menses. Her menses is also 4 days late. She does admit to a history of constipation. Last sexual activity was one month ago. She denies , vaginal drainage or urinary symptoms. She denies any prior history of pelvic disease, including STI, ovarian cysts, torsion, endometriosis or fibroids. She rates her discomfort a 7 out of 10. Review of Systems HEENT: Denies dizziness, visual problems, hearing loss, tinnitus. Denies difficulty swallowing or oral lesions. PULMONARY: Denies cough, shortness of breath, sputum production or hemoptysis. CARDIOVASCULAR: Denies chest pain, palpitations, dyspnea on exertion, orthopnea or peripheral edema. GASTROINTESTINAL: See history of present illness. GENITOURINARY: Denies dysuria, frequency, urgency or nocturia. NEUROLOGIC: Denies history of epilepsy, CVA, TIA or chronic headaches. MUSCULOSKELETAL: Denies history of joint tenderness/swelling. SKIN: Denies rashes or lesions. PSYCHIATRIC: Denies history of depression or mental illness. ENDOCRINE: Denies history of diabetes or thyroid disorders. Past Medical/Surgical History Medical Problems: (1) History of - depression (2) No significant past medical history Family History Patient reports no known family medical history. Social History Smoking Status: Never Smoker Alcohol Use: occasionally Drug Use: none Marital Status: single Housing Status: lives alone Occupation Status: [employer] student Current/Historical Medications No Active Prescriptions or Reported Meds Allergies Coded Allergies: No Known Allergies (Unverified , 01/12/17) Physical Exam Vital Signs Date Time Temp Pulse Resp B/P (MAP) Pulse Ox O2 Delivery O2 Flow Rate FiO2 01/12/17 18:09 67 18 99/59 100 01/12/17 16:53 64 16 98/59 100 Room Air 01/12/17 16:09 65 16 95/56 100 Room Air 01/12/17 14:21 37.0 71 15 114/76 100 Room Air Physical Exam CONSTITUTIONAL: Healthy and well nourished. Alert and oriented X 3 with positive affect. Patient does not appear in any acute distress. HEENT: Normocephalic, atraumatic. Pupils equal, round and reactive. Nose clear icterus or conjunctival pallor. NECK: Full active range of motion without discomfort. RESPIRATORY: Clear to auscultation bilaterally with no wheezing, crackles, rhonchi or stridor. Deep breathing does not worsen her discomfort. CARDIOVASCULAR: Regular rate and rhythm with no murmurs, rubs or gallops. GASTROINTESTINAL: Bowel sounds present in all quadrants. Examination shows minimal suprapubic tenderness to palpation. No rigidity, guarding or rebound. Negative McBurney's point tenderness. Negative CVA tenderness. Negative Juan sign. With a female nurse farmworker [employer] present, digital rectal exam shows a negative stool Hemoccult. No evidence for hemorrhoids. MUSCULOSKELETAL: Full range of motion of all joints without discomfort. No tenderness to palpation through the lower lumbar region or SI joints. Negative logroll. Negative straight leg raise. Pedal pulses are intact. INTEGUMENTARY: No rash or other significant dermatologic conditions noted. NEUROLOGIC: No focal neurologic deficits noted. Lower extremities are sensory intact. Medical Decision & Procedures ER Provider Diagnostic Interpretation: My interpretation of an abdomen obstruction series with PA chest few does not show any obstructive pattern, free air, basilar lung consolidations or abdominal free air. Radiologist report is as follows: CHEST AND ABDOMEN 2 VIEWS HISTORY: Generalized abdominal pain. COMPARISON: Chest 08/11/2016. Abdomen and pelvis CT 07/05/2016. FINDINGS: The lungs are clear. The cardiomediastinal silhouette is within normal limits. There is no pneumoperitoneum or pneumatosis. The bowel gas pattern is unremarkable. No evidence for bowel obstruction. No pathologic calcifications. IMPRESSION: No acute cardiopulmonary process. No evidence for bowel obstruction. Laboratory Results 01/12/17 15:05 Red Blood Count 3.84, Mean Corpuscular Volume 90.9, Mean Corpuscular Hemoglobin 31.0, Mean Corpuscular Hemoglobin Concent 34.1, Mean Platelet Volume 10.2, Neutrophils (%) (Auto) 53.1, Lymphocytes (%) (Auto) 36.7, Monocytes (%) (Auto) 9.4, Eosinophils (%) (Auto) 0.6, Basophils (%) (Auto) 0.2, Neutrophils # (Auto) 2.71, Lymphocytes # (Auto) 1.87, Monocytes # (Auto) 0.48, Eosinophils # (Auto) 0.03, Basophils # (Auto) 0.01 01/12/17 15:05 Test 01/12/17 15:05 01/12/17 16:49 White Blood Count 5.10 K/uL (4.8-10.8) Red Blood Count 3.84 M/uL (4.2-5.4) Hemoglobin 11.9 g/dL (12.0-16.0) Hematocrit 34.9 % (37-47) Mean Corpuscular Volume 90.9 fL (80-100) Mean Corpuscular Hemoglobin 31.0 pg (25-34) Mean Corpuscular Hemoglobin Concent 34.1 g/dl (32-36) Platelet Count 201 K/uL (130-400) Mean Platelet Volume 10.2 fL (7.4-10.4) Neutrophils (%) (Auto) 53.1 % Lymphocytes (%) (Auto) 36.7 % Monocytes (%) (Auto) 9.4 % Eosinophils (%) (Auto) 0.6 % Basophils (%) (Auto) 0.2 % Neutrophils # (Auto) 2.71 K/uL (1.4-6.5) Lymphocytes # (Auto) 1.87 K/uL (1.2-3.4) Monocytes # (Auto) 0.48 K/uL (0.11-0.59) Eosinophils # (Auto) 0.03 K/uL (0-0.5) Basophils # (Auto) 0.01 K/uL (0-0.2) RDW Standard Deviation 43.3 fL (36.4-46.3) RDW Coefficient of Variation 13.0 % (11.5-14.5) Immature Granulocyte % (Auto) 0.0 % Immature Granulocyte # (Auto) 0.00 K/uL (0.00-0.02) Anion Gap 5.0 mmol/L (3-11) Est Creatinine Clear Calc Drug Dose 128.9 ml/min Estimated GFR () 145.6 Estimated GFR (Non- 125.6 BUN/Creatinine Ratio 14.9 (10-20) Calcium Level 8.7 mg/dl (8.5-10.1) Total Bilirubin 0.5 mg/dl (0.2-1) Direct Bilirubin 0.2 mg/dl (0-0.2) Aspartate Amino Transf (AST/SGOT) 13 U/L (15-37) Alanine Aminotransferase (ALT/SGPT) 16 U/L (12-78) Alkaline Phosphatase 61 U/L (45-117) Total Protein 6.8 gm/dl (6.4-8.2) Albumin 3.8 gm/dl (3.4-5.0) Lipase 128 U/L (73-393) Urine Color YELLOW Urine Appearance CLEAR (CLEAR) Urine pH 5.5 (4.5-7.5) Urine Specific [place] 1.024 (1.000-1.030) Urine Protein NEG (NEG) Urine Glucose (UA) NEG (NEG) Urine Ketones TRACE (NEG) Urine Occult Blood TRACE (NEG) Urine Nitrite NEG (NEG) Urine Bilirubin NEG (NEG) Urine Urobilinogen NEG (NEG) Urine Leukocyte Esterase SMALL (NEG) Urine WBC (Auto) 5-10 /hpf (0-5) Urine RBC (Auto) 0-4 /hpf (0-4) Urine Hyaline Casts (Auto) 1-5 /lpf (0-5) Urine Epithelial Cells (Auto) >30 /lpf (0-5) Urine Bacteria (Auto) NEG (NEG) Urine Yeast (Auto) (NONE PRSENT) Urine Test NEG (NEG) The above labs were reviewed and were grossly normal except for a mildly decreased hemoglobin and hematocrit of 11.9 and 34.9, respectively. Urinalysis is contaminated, and not suspicious for infection. Urine was negative. ED Course Patient history and physical exam were performed. Nurse's notes were reviewed. Vital signs were reviewed and were normal. IV access was established, and labs were drawn. Labs were reviewed and were grossly normal. Urinalysis was unremarkable with a negative urine test. Stool Hemoccult collected by digital rectal exam was negative. I did spend a good amount of time with the patient trying to determine the source of her bleeding. After several repeated questions, the patient reports that she did have dark red vaginal bleeding. She does not think that she got blood in her stool when wiping, thus the reason why was concern for possible GI bleed. Because the stool Hemoccult was negative, I explained that I do not suspect a GI bleed. I explained that her pain could be secondary to dysmenorrhea. I did offer to perform a pelvic exam and ultrasound, but the patient refused, stating that she would follow-up with RESIDENCE DIRECTOR for further reevaluation. She was instructed to return to the emergency department for any progressively worsening and focalized abdominal pain, vomiting or developing fever. I did explain that her symptoms could be secondary to acute appendicitis , but not likely given her current physical exam findings. The patient was happy with plan of care, voiced understanding of all discharge instructions, and denied any significant pain at the conclusion of my exam. She refused any analgesics while in the emergency department. The case was also discussed with Dr. Bravo, ED attending physician, who agrees with workup and plan of care. Medical Decision See previous section. The patient does have a negative stool Hemoccult today, therefore I suspect that the dark red blood that she saw was from vaginal bleeding. She didn't has had mildly worsening abdominal discomfort, which is likely secondary to dyspareunia. The patient is afebrile and has no leukocytosis to suggest any infectious etiology. She has no peritoneal signs on exam. The patient did refuse pelvic exam and ultrasound, therefore other acute intrapelvic etiology such as PID, ovarian torsion/cyst and other possible intrapelvic etiologies could not be further evaluated. Impression Primary Impression: Lower abdominal pain Additional Impression: Dysmenorrhea Departure Information Prescriptions No Active Prescriptions or Reported Meds Referrals No Doctor, Assigned (PCP) Patient Instructions My [facility] Problem Qualifiers
== END 2017-01-12 18:11 | disposition home or self-care (01) ==
LOC: C.EDB 14:20 → C.EDA 18:11
DX: R10.30 Lower abdominal pain, unspecified (principal); N94.6 Dysmenorrhea, unspecified

== ENCOUNTER 2017-01-18 16:30 | Emergency (ER) | payer OTHER ==
[~2017-01-18] VITALS: Ht 165.1 cm; Wt 54.1 kg
[2017-01-18 16:35] VITALS: TEMP 36.3; Ht 165.1 cm; Wt 54.1 kg
[2017-01-18] MEDS ORDERED: ONDANSETRON INJ 2 MG/ML 2 ML VIAL IV STA (17:16)
[2017-01-18] MEDS ORDERED: MoRPHine SULFATE 4 MG/ML 1 ML CARP\\VIAL IV PRN (17:30)
[2017-01-18] MEDS ORDERED: OPTIRAY 320 IV PRN (17:30)
[2017-01-18 17:48] LABS: URINE APPEARANCE TURBID (CLEAR); URINE BILIRUBIN NEG (NEG); URINE COLOR YELLOW; URINE NITRITE NEG (NEG); URINE SPECIFIC GRAVITY 1.022 (1.000-1.030); UROBILINOGEN NEG (NEG)
[2017-01-18 17:49] LABS: MANUAL MICROSCOPIC REQUIRED? NO; REVIEW REQ? NO
[2017-01-18 18:07] LABS: BASO % 0.3 %; BASO ABS # 0.02 K/uL (0-0.2); COMPLETE YES; EOS % 0.3 %; HEMATOCRIT 36.6 % (37-47); IG% 0.2 %; LYMPH % 32.2 %; LYMPH ABS # 2.08 K/uL (1.2-3.4); MEAN CORPUSCULAR HEMOGLOBIN 29.9 pg (25-34); MEAN CORPUSCULAR HGB CONC 32.5 g/dl (32-36); MEAN PLATELET VOLUME 10.2 fL (7.4-10.4); MONO % 7.4 %; NEUT % 59.6 %; PLATELET COUNT 244 K/uL (130-400); RED BLOOD COUNT 3.98 M/uL (4.2-5.4); WHITE BLOOD COUNT 6.45 K/uL (4.8-10.8)
[2017-01-18 18:34] LABS: CALCIUM 8.8 mg/dl (8.5-10.1); CREATININE 0.51 mg/dl (0.60-1.20); POTASSIUM 3.8 mmol/L (3.5-5.1)
--- NOTE | 2017-01-18 20:24 | DIAGNOSTIC IMAGING REPORT ---
ABD/PELVIS IV AND ORAL CONT CLINICAL HISTORY: 31 years-old Female presenting with ABDOMINAL PAIN/GI. TECHNIQUE: Multidetector CT of the abdomen and pelvis was performed after the administration of oral and intravenous contrast. IV contrast: 94 mL of Optiray 320. A dose lowering technique was used consistent with the principles of ALARA (as low as reasonably achievable). COMPARISON: 07/05/2016. CT DOSE (mGy.cm): The estimated cumulative dose is 266.42 mGy.cm. FINDINGS: Community Development Officer topogram: Unremarkable. Lung bases: Lung bases clear. Normal heart size. No pericardial or pleural effusion. Liver: Normal morphology. No liver lesion. Patent hepatic vasculature. Biliary: No intrahepatic or extrahepatic biliary ductal dilatation. Normal gallbladder. Pancreas: Normal. Spleen: Normal. Adrenal glands: Normal. Kidneys and ureters: Normal. No hydronephrosis. Ureters poorly assessed secondary to a paucity of intra-abdominal fat. Bladder: Normal. Pelvic organs: Uterus and ovaries normal. Dominant follicle noted on the right. Bowel: Oral contrast has transited to the colon. Segment of small bowel with a thickened wall measuring up to 4 mm (series 2 image 50), located in the right mid abdomen. Terminal ileum is normal. Mildly distended the proximal small bowel, measuring up to 2.9 cm in diameter. No clear transition point to suggest a partial bowel obstruction. Normal appendix. Peritoneal cavity: Trace free fluid in the pelvis. Lymph nodes: No enlarged lymph nodes in the abdomen or pelvis. Vasculature: Aorta and IVC patent and normal in caliber. Abdominal wall: Normal. Musculoskeletal: Normal. IMPRESSION: 1. Focal small bowel wall thickening in a loop of small bowel in the right mid abdomen. Mildly distended proximal small bowel. Findings could suggest enteritis, most likely infectious. No convincing evidence of a partial or complete small bowel obstruction. The terminal ileum and colon are normal. No appendicitis. Electronically signed by: Lázaro Juarez M.D. 01/18/2017 8:23 PM Dictated Date/Time: 01/18/2017 8:15 PM
[2017-01-18] MEDS ORDERED: ACETAMINOPHEN 500 MG TAB PO STA (20:53)
[2017-01-18 21:32] VITALS: BP 102/85; PULSE 88; O2SAT 98
--- NOTE | 2017-01-19 03:40 | EMERGENCY ROOM VISIT NOTE ---
ED Visit Note First contact with patient: 16:40 Chief Complaint: I'm having pain in my stomach and my head. History of Present Illness: Ms. Rose is a 31 year-old Faro[place] female who ambulates into the ED complaining of right lower quadrant abdominal pain and a right temporoparietal headache. Historically patient reports she has no previous gastrointestinal diseases or abdominal surgeries. Patient reports a gradual onset of right lower quadrant abdominal pain that started approximately 11 hours ago. Initially the pain was mild but has gradually increased in intensity. She describes her discomfort as a pressure- like sensation. Her pain is situated superior and laterally to McBurney's point. She rates her discomfort 9/10. Her pain is nonradiating. She has not identified any aggravating or alleviating factors related to the pain. She reports she's had this pain before multiple times but has never had it evaluated. She has not taken any medications for her discomfort prior to arrival at the hospital. Associated with her pain she reports she has been nauseated but has not vomited. Additionally she is complaining of a right temporoparietal headache. She reports she has been having 3-4 headaches similar to this every week from the beginning of the semester. She has not had these medically evaluated. She describes her discomfort as a pressure sensation. She rates her discomfort 4/ 10. Her pain is constant. Her pain is nonradiating. She is not identified any aggravating or alleviating factors related to the pain. She has not taken any medications for pain prior to arrival at the hospital. With her current complaints she denies any associated fevers, chills, sweats, skin eruptions, skin color changes, recent head or abdominal trauma, visual changes, hearing changes, difficulty speaking, difficulty swallowing, difficulty ambulating/coordinating body movements, upper respiratory tract symptoms, shortness of breath, sore throats, neck pain/stiffness, upper abdominal pain, diarrhea, constipation, rectal bleeding, black/tarry stools, decreased appetite, urinary symptoms, hematuria, vaginal bleeding, vaginal discharge, back/flank pain. Review of Systems: As noted above in history of present illness. All body systems were reviewed and found to be negative as noted above. Past Medical History: Pneumonia, depression. Current Medications: Patient denies. Allergies to Medications: Patient denies. Social History: Patient is currently University student; she feels safe in her home environment; she denies tobacco and alcohol use. Physical Examination: Vital Signs: Date Time Temp Pulse Resp B/P (MAP) Pulse Ox O2 Delivery O2 Flow Rate FiO2 01/18/17 21:32 88 16 102/85 98 01/18/17 20:20 76 16 110/68 100 Room Air 01/18/17 18:21 82 16 115/75 100 Room Air 01/18/17 16:35 36.3 77 18 113/68 99 Room Air GENERAL: 31-year-old female in mild to moderate distress due to pain, nontoxic- appearing, afebrile and hemodynamically stable. NEUROLOGICAL: Awake, alert and oriented to person, place and time. Answering questions appropriately and following commands. Normal gait. Good hand eye coordination. Cranial nerves II through XII grossly intact. Good short-term and long-term recall. No focal motor sensory deficits. SKIN: Warm, dry and pink. No soft tissue eruptions or trauma noted. HEENT: Atraumatic and normocephalic. Skull: No bony tenderness, deformity, bony crepitus, swelling or ecchymosis. No tenderness or erythema over the frontal or maxillary sinuses. PERRLA. Sclera white and conjunctiva pink. Speech normal. No lymphadenopathy. Trachea midline. No jugular venous distention. BACK: No tenderness over the bony cervical and thoracic spine. No paraspinous muscle tenderness or spasm. Full range of motion of the cervical spine. No CVA tenderness. THORAX: Lungs sounds are clear to auscultation and equal bilaterally with symmetrical chest wall. No wheezing, rales or rhonchi. No crepitus, tenderness , subcutaneous air or deformities noted. HEART: Regular rate and rhythm. No gallops, rubs or murmurs are appreciated. ABDOMEN: Flat and, soft with mild tenderness just superior lateral to McBurney' s point. Positive bowel sounds in all quadrants. No guarding, rigidity or organomegaly. EXTREMITIES: Moves all extremities well on command and with purpose. All distal neurovascular statuses are intact and equal bilaterally. ED Course: Patient is assessed as noted above. Laboratory Testing: Test 01/18/17 17:32 01/18/17 17:56 Range/Units Urine Color YELLOW Urine Appearance TURBID CLEAR Urine pH 8.0 4.5-7.5 Urine Specific [place] 1.022 1.000-1.030 Urine Protein NEG NEG Urine Glucose (UA) NEG NEG Urine Ketones NEG NEG Urine Occult Blood NEG NEG Urine Nitrite NEG NEG Urine Bilirubin NEG NEG Urine Urobilinogen NEG NEG Urine Leukocyte Esterase NEG NEG Urine WBC (Auto) 1-5 0-5 /hpf Urine RBC (Auto) 0-4 0-4 /hpf Urine Hyaline Casts (Auto) 1-5 0-5 /lpf Urine Epithelial Cells (Auto) 10-20 0-5 /lpf Urine Bacteria (Auto) NEG NEG Urine Test NEG NEG White Blood Count 6.45 4.8-10.8 K/uL Red Blood Count 3.98 4.2-5.4 M/uL Hemoglobin 11.9 12.0-16.0 g/dL Hematocrit 36.6 37-47 % Mean Corpuscular Volume 92.0 80-100 fL Mean Corpuscular Hemoglobin 29.9 25-34 pg Mean Corpuscular Hemoglobin Concent 32.5 32-36 g/dl Platelet Count 244 130-400 K/uL Mean Platelet Volume 10.2 7.4-10.4 fL Neutrophils (%) (Auto) 59.6 % Lymphocytes (%) (Auto) 32.2 % Monocytes (%) (Auto) 7.4 % Eosinophils (%) (Auto) 0.3 % Basophils (%) (Auto) 0.3 % Neutrophils # (Auto) 3.84 1.4-6.5 K/uL Lymphocytes # (Auto) 2.08 1.2-3.4 K/uL Monocytes # (Auto) 0.48 0.11-0.59 K/uL Eosinophils # (Auto) 0.02 0-0.5 K/uL Basophils # (Auto) 0.02 0-0.2 K/uL RDW Standard Deviation 43.6 36.4-46.3 fL RDW Coefficient of Variation 12.9 11.5-14.5 % Immature Granulocyte % (Auto) 0.2 % Immature Granulocyte # (Auto) 0.01 0.00-0.02 K/uL Erythrocyte Sedimentation Rate 9 0-21 mm/hr Sodium Level 141 136-145 mmol/L Potassium Level 3.8 3.5-5.1 mmol/L Chloride Level 106 98-107 mmol/L Carbon Dioxide Level 29 21-32 mmol/L Anion Gap 6.0 3-11 mmol/L Blood Urea Nitrogen 10 7-18 mg/dl Creatinine 0.51 0.60-1.20 mg/dl Est Creatinine Clear Calc Drug Dose 135.3 ml/min Estimated GFR () 147.5 Estimated GFR (Non- 127.2 BUN/Creatinine Ratio 20.0 10-20 Random Glucose 79 70-99 mg/dl Calcium Level 8.8 8.5-10.1 mg/dl Total Bilirubin 0.4 0.2-1 mg/dl Direct Bilirubin 0.1 0-0.2 mg/dl Aspartate Amino Transf (AST/SGOT) 19 15-37 U/L Alanine Aminotransferase (ALT/SGPT) 23 12-78 U/L Alkaline Phosphatase 68 45-117 U/L Total Protein 7.8 6.4-8.2 gm/dl Albumin 4.3 3.4-5.0 gm/dl Lipase 174 73-393 U/L Contrast Abdominal/Pelvic CT: Was reviewed by myself and read by the radiologist and shows focal small bowel wall thickening in the loops of the small bowel in the right mid quadrant. Mildly distended proximal small bowel. Findings consistent with enteritis. No signs of bowel obstruction and normal- appearing appendix. Patient was hydrated with normal saline and received 4 mg of morphine IV for pain and 4 mg of Zofran IV. Patient was reassessed multiple times during her stay in the emergency department. Prior to discharge patient did report she had resolution of abdominal pain but did continue to have a mild headache and she was given 1 g of acetaminophen by mouth. Patient's case was reviewed with Dr. Panda; we agreed on diagnostic approach, treatment, disposition and plan. Patient was educated about today's findings and instructed on her treatment plan ; she verbalizes understanding and agreement with this plan. Clinical Impression: Right lower quadrant abdominal pain. Decision-Making: For her abdominal pain of a considered appendicitis, ectopic , ovarian torsion, ovarian cyst rupture, constipation, urinary tract infection/kidney stone and other causes. For abdominal pain I considered primary headache, sinusitis, intracranial bleed and other causes. Disposition: Patient discharged home in stable condition accompanied by friends ; prior to departure she was reassessed and subjectively reported that she was pain and symptom-free. Plan: Patient was encouraged to alternate ibuprofen and acetaminophen as needed for pain. Patient was encouraged to stay well-hydrated with increased clear fluids. Patient was encouraged use a bland diet for the next 48 hours. Patient is encouraged to follow-up at [facility] for recheck of your abdominal pain and headaches in 3-4 days. Patient was encouraged return ED for worsening/uncontrolled abdominal pain, fevers, vomiting, bloody stools, return of severe headache or any new/ concerning symptoms.
== END 2017-01-18 21:33 | disposition home or self-care (01) ==
LOC: C.EDB 16:31 → C.EDC 21:33
DX: R10.31 Right lower quadrant pain (principal); R51 Headache; Z87.01 Personal history of pneumonia (recurrent); F32.9 Major depressive disorder, single episode, unspecified

== ENCOUNTER 2017-01-27 16:43 | Emergency (ER) | payer OTHER ==
[~2017-01-27] VITALS: Ht 165.1 cm; Wt 55.0 kg
[2017-01-27 16:46] VITALS: TEMP 36.4; Ht 165.1 cm; Wt 55.0 kg
[2017-01-27] MEDS ORDERED: ONDANSETRON INJ 2 MG/ML 2 ML VIAL IV STA ×2 (17:02→20:46)
[2017-01-27] MEDS ORDERED: SODIUM CHLORIDE 0.9% 1000ML 1,000 ML IV STA (17:02)
[2017-01-27 17:30] LABS: BASO % 0.4 %; BASO ABS # 0.02 K/uL (0-0.2); COMPLETE YES; EOS % 0.6 %; IG% 0.2 %; LYMPH % 33.6 %; MEAN CELL VOLUME 93.5 fL (80-100); MEAN CORPUSCULAR HEMOGLOBIN 30.4 pg (25-34); MEAN CORPUSCULAR HGB CONC 32.6 g/dl (32-36); MEAN PLATELET VOLUME 10.4 fL (7.4-10.4); MONO % 9.2 %; PLATELET COUNT 262 K/uL (130-400); WHITE BLOOD COUNT 5.35 K/uL (4.8-10.8)
[2017-01-27 17:35] LABS: URINE APPEARANCE CLEAR (CLEAR); URINE BILIRUBIN NEG (NEG); URINE COLOR DK YELLOW; URINE EPITHELIAL CELL AUTO 20-30 /lpf (0-5); URINE NITRITE NEG (NEG); URINE SPECIFIC GRAVITY 1.025 (1.000-1.030); UROBILINOGEN NEG (NEG); ZZUR CULT IF INDIC CLEAN CATCH NO
[2017-01-27 17:44] LABS: MANUAL MICROSCOPIC REQUIRED? NO; REVIEW REQ? NO
[2017-01-27 17:49] LABS: BUN/CREATININE RATIO 23.3 (10-20); CALCIUM 8.6 mg/dl (8.5-10.1); CREATININE 0.62 mg/dl (0.60-1.20); POTASSIUM 3.1 mmol/L (3.5-5.1)
--- NOTE | 2017-01-27 18:26 | DIAGNOSTIC IMAGING REPORT ---
ULTRASOUND OF THE PELVIS CLINICAL HISTORY: Right pelvic pain. COMPARISON STUDY: Pelvic CT dated 01/18/2017. TECHNIQUE: Real-time, grayscale, and color flow sonography of the pelvis is performed transabdominally. The endovaginal examination was deferred. Images are reviewed in the transverse and longitudinal planes. FINDINGS: Uterus: The uterus is normal in size and heterogeneous in echotexture, measuring 8.9 x 3.8 x 5.3 cm. Endometrium: The endometrium is normal in appearance, and the endometrial stripe is normal in thickness measuring up to 0.9 cm. Ovaries: The right ovary is normal as imaged, measuring 3.2 x 1.8 x 1.9 cm. The left ovary was not visualized on this transabdominal examination. There are small right ovarian follicles. Normal Doppler waveforms are shown within the right ovary. Pelvis: There is a small volume of free fluid in the cul-de-sac. No concerning adnexal lesion is seen. IMPRESSION: 1. Unremarkable transabdominal sonographic assessment of the uterus and right ovary. 2. The left ovary was not visualized. 3. There is a small volume of free fluid in the cul-de-sac, likely within physiologic limits. Electronically signed by: Jeffrey Lance M.D. 01/27/2017 6:25 PM Dictated Date/Time: 01/27/2017 6:22 PM
[2017-01-27] MEDS ORDERED: OPTIRAY 320 IV PRN (20:45)
--- NOTE | 2017-01-27 21:20 | DIAGNOSTIC IMAGING REPORT ---
CT SCAN OF THE ABDOMEN AND PELVIS WITH IV CONTRAST CLINICAL HISTORY: Generalized abdominal pain. COMPARISON STUDY: Abdominal CT dated 01/18/2017. Pelvic ultrasound dated 01/27/2017. TECHNIQUE: Following the IV administration of 117 cc of Optiray 320, CT scan of the abdomen and pelvis is performed from the lung bases to the proximal femora. Images are reviewed in the axial, sagittal, and coronal planes. IV contrast was administered without complication. A dose lowering technique was utilized adhering to the principles of ALARA. CT DOSE: 260.63 mGy.cm FINDINGS: Lung bases: The heart is normal in size and without pericardial effusion. The lung bases are clear. Liver: The contrast-enhanced liver is normal in size, contour, and attenuation. There is no intrahepatic biliary ductal dilatation. The hepatic veins and portal veins are patent. Gallbladder: Unremarkable. Spleen: Normal in size and attenuation. Pancreas: Unremarkable. Adrenal glands: Unremarkable. Kidneys: The contrast enhanced kidneys are normal in size and without hydronephrosis. The kidneys enhance symmetrically. Abdominal vasculature: The abdominal aorta is normal in course and caliber. Bowel: The small bowel and colon are normal in course and caliber. The appendix is well-visualized and normal. Peritoneum: There is no intraperitoneal free air or abdominal ascites. Lymphadenopathy: None. Pelvic viscera: The bladder, uterus, and adnexa are normal as visualized. There are small ovarian follicles. Trace free fluid is seen in the cul-de-sac. Skeletal structures: No lytic or blastic lesions are seen. IMPRESSION: 1. There are no acute infectious or inflammatory findings in the abdomen or pelvis. 2. There is a small volume of free fluid in the cul-de-sac, likely within physiologic limits. Electronically signed by: Jeffrey Lance M.D. 01/27/2017 9:19 PM Dictated Date/Time: 01/27/2017 9:13 PM
--- NOTE | 2017-01-27 22:13 | EMERGENCY ROOM VISIT NOTE ---
History Report prepared by Miranda: Kenyatta Post Under the Supervision of: Dr. Jaden Bravo D.O. First contact with patient: 16:59 Chief Complaint: ABDOMINAL PAIN Stated Complaint: ABDOMINAL PAIN AND PAIN IN LEFT ELBOW Nursing Triage Summary: pt to the ED with right sided abd pain since that has continued no other associated sx but nausea History of Present Illness The patient is a 31 year old female who presents to the Emergency Room with complaints of constant lower abdominal pain beginning 2 days ago. The patient states that she was seen here earlier this month for abdominal pain but this time the pain is lower. She reports that 2 days ago she developed abdominal pain and she is not sure what the cause could be. She notes that walking worsens her symptoms. The patient complains of nausea and diarrhea. She denies any vomiting. The patient also states that she is having some pain and a little bit of swelling to her left wrist. Source of History: patient Onset: 2 days ago Position: abdomen Timing: constant Modifying Factors (Worsening): other (walking) Associated Symptoms: + nausea, + diarrhea, No vomiting Review of Systems See HPI for pertinent positives & negatives. A total of 10 systems reviewed and were otherwise negative. Past Medical & Surgical Medical Problems: (1) History of - depression (2) No significant past medical history (3) Pneumonia, Unspecified Organism Surgical Problems: (1) No history of previous surgery Family History Patient reports no known family medical history. Social History Smoking Status: Never Smoker Alcohol Use: occasionally Drug Use: none Marital Status: single Housing Status: lives alone Occupation Status: [employer] student Current/Historical Medications No Active Prescriptions or Reported Meds Allergies Coded Allergies: No Known Allergies (Unverified , 01/27/17) Physical Exam Vital Signs Date Time Temp Pulse Resp B/P (MAP) Pulse Ox O2 Delivery O2 Flow Rate FiO2 01/27/17 21:15 70 16 88/58 97 Room Air 01/27/17 19:38 74 16 96/64 100 Room Air 01/27/17 16:46 36.4 85 16 99/62 100 Room Air Physical Exam CONSTITUTIONAL/VITAL SIGNS: Reviewed / noted above. GENERAL: Non-toxic in appearance. INTEGUMENTARY: Warm, dry, and [place]. HEAD: Normocephalic. EYES: without scleral icterus or trauma. ENT/OROPHARYNX: clear and moist. LYMPHADENOPATHY/NECK: Is supple without lymphadenopathy or meningismus. RESPIRATORY: Lungs clear and equal. CARDIOVASCULAR: Regular rate and rhythm. GI/ABDOMEN: Soft and tender to the RLQ. No organomegaly or pulsatile mass. No rebound or guarding. Normal bowel sounds. EXTREMITIES: Warm and well perfused. BACK: No CVA tenderness. NEUROLOGICAL: Intact without focal deficits. PSYCHIATRIC: normal affect. MUSCULOSKELETAL: Normally developed with good muscle tone. Medical Decision & Procedures ER Provider Diagnostic Interpretation: Radiology results as stated below per my review and radiologist interpretation: ULTRASOUND OF THE PELVIS FINDINGS: Uterus: The uterus is normal in size and heterogeneous in echotexture, measuring 8.9 x 3.8 x 5.3 cm. Endometrium: The endometrium is normal in appearance, and the endometrial stripe is normal in thickness measuring up to 0.9 cm. Ovaries: The right ovary is normal as imaged, measuring 3.2 x 1.8 x 1.9 cm. The left ovary was not visualized on this transabdominal examination. There are small right ovarian follicles. Normal Doppler waveforms are shown within the right ovary. Pelvis: There is a small volume of free fluid in the cul-de-sac. No concerning adnexal lesion is seen. IMPRESSION: 1. Unremarkable transabdominal sonographic assessment of the uterus and right ovary. 2. The left ovary was not visualized. 3. There is a small volume of free fluid in the cul-de-sac, likely within physiologic limits. Electronically signed by: Jeffrey Lance M.D. 01/27/2017 6:25 PM Dictated Date/Time: 01/27/2017 6:[address] SCAN OF THE ABDOMEN AND PELVIS WITH IV CONTRAST FINDINGS: Lung bases: The heart is normal in size and without pericardial effusion. The lung bases are clear. Liver: The contrast-enhanced liver is normal in size, contour, and attenuation. There is no intrahepatic biliary ductal dilatation. The hepatic veins and portal veins are patent. Gallbladder: Unremarkable. Spleen: Normal in size and attenuation. Pancreas: Unremarkable. Adrenal glands: Unremarkable. Kidneys: The contrast enhanced kidneys are normal in size and without hydronephrosis. The kidneys enhance symmetrically. Abdominal vasculature: The abdominal aorta is normal in course and caliber. Bowel: The small bowel and colon are normal in course and caliber. The appendix is well-visualized and normal. Peritoneum: There is no intraperitoneal free air or abdominal ascites. Lymphadenopathy: None. Pelvic viscera: The bladder, uterus, and adnexa are normal as visualized. There are small ovarian follicles. Trace free fluid is seen in the cul-de-sac. Skeletal structures: No lytic or blastic lesions are seen. IMPRESSION: 1. There are no acute infectious or inflammatory findings in the abdomen or pelvis. 2. There is a small volume of free fluid in the cul-de-sac, likely within physiologic limits. Electronically signed by: Jeffrey Lance M.D. 01/27/2017 9:19 PM Dictated Date/Time: 01/27/2017 9:13 PM Laboratory Results 01/27/17 17:20 Red Blood Count 4.60, Mean Corpuscular Volume 93.5, Mean Corpuscular Hemoglobin 30.4, Mean Corpuscular Hemoglobin Concent 32.6, Mean Platelet Volume 10.4, Neutrophils (%) (Auto) 56.0, Lymphocytes (%) (Auto) 33.6, Monocytes (%) (Auto) 9.2, Eosinophils (%) (Auto) 0.6, Basophils (%) (Auto) 0.4, Neutrophils # (Auto) 3.00, Lymphocytes # (Auto) 1.80, Monocytes # (Auto) 0.49, Eosinophils # (Auto) 0.03, Basophils # (Auto) 0.02 01/27/17 17:20 Test 01/27/17 17:20 01/27/17 17:24 White Blood Count 5.35 K/uL (4.8-10.8) Red Blood Count 4.60 M/uL (4.2-5.4) Hemoglobin 14.0 g/dL (12.0-16.0) Hematocrit 43.0 % (37-47) Mean Corpuscular Volume 93.5 fL (80-100) Mean Corpuscular Hemoglobin 30.4 pg (25-34) Mean Corpuscular Hemoglobin Concent 32.6 g/dl (32-36) Platelet Count 262 K/uL (130-400) Mean Platelet Volume 10.4 fL (7.4-10.4) Neutrophils (%) (Auto) 56.0 % Lymphocytes (%) (Auto) 33.6 % Monocytes (%) (Auto) 9.2 % Eosinophils (%) (Auto) 0.6 % Basophils (%) (Auto) 0.4 % Neutrophils # (Auto) 3.00 K/uL (1.4-6.5) Lymphocytes # (Auto) 1.80 K/uL (1.2-3.4) Monocytes # (Auto) 0.49 K/uL (0.11-0.59) Eosinophils # (Auto) 0.03 K/uL (0-0.5) Basophils # (Auto) 0.02 K/uL (0-0.2) RDW Standard Deviation 44.6 fL (36.4-46.3) RDW Coefficient of Variation 13.1 % (11.5-14.5) Immature Granulocyte % (Auto) 0.2 % Immature Granulocyte # (Auto) 0.01 K/uL (0.00-0.02) Anion Gap 5.0 mmol/L (3-11) Est Creatinine Clear Calc Drug Dose 113.1 ml/min Estimated GFR () 138.3 Estimated GFR (Non- 119.3 BUN/Creatinine Ratio 23.3 (10-20) Calcium Level 8.6 mg/dl (8.5-10.1) Total Bilirubin 0.4 mg/dl (0.2-1) Direct Bilirubin 0.1 mg/dl (0-0.2) Aspartate Amino Transf (AST/SGOT) 17 U/L (15-37) Alanine Aminotransferase (ALT/SGPT) 25 U/L (12-78) Alkaline Phosphatase 81 U/L (45-117) Total Protein 8.4 gm/dl (6.4-8.2) Albumin 4.4 gm/dl (3.4-5.0) Lipase 270 U/L (73-393) Urine Color DK YELLOW Urine Appearance CLEAR (CLEAR) Urine pH 5.0 (4.5-7.5) Urine Specific [place] 1.025 (1.000-1.030) Urine Protein NEG (NEG) Urine Glucose (UA) TRACE (NEG) Urine Ketones NEG (NEG) Urine Occult Blood NEG (NEG) Urine Nitrite NEG (NEG) Urine Bilirubin NEG (NEG) Urine Urobilinogen NEG (NEG) Urine Leukocyte Esterase NEG (NEG) Urine WBC (Auto) 1-5 /hpf (0-5) Urine RBC (Auto) 0-4 /hpf (0-4) Urine Hyaline Casts (Auto) 1-5 /lpf (0-5) Urine Epithelial Cells (Auto) 20-30 /lpf (0-5) Urine Bacteria (Auto) NEG (NEG) Urine Test NEG (NEG) Laboratory results as stated above per my review. Medications Administered Medications (Trade) Dose Ordered Sig/Dawson Route Start Time Stop Time Status Last Admin Dose Admin Sodium Chloride 1,000 ml @ 999 mls/hr Q1H1M STAT IV 01/27/17 17:02 01/27/17 18:02 DC 01/27/17 17:20 999 MLS/HR Ondansetron HCl (Zofran Inj) 4 mg NOW STAT IV 01/27/17 17:02 01/27/17 17:07 DC 01/27/17 17:20 4 MG Ondansetron HCl (Zofran Inj) 4 mg NOW STAT IV 01/27/17 20:46 01/27/17 20:47 DC 01/27/17 21:11 4 MG ED Course 1659: Previous medical records were reviewed. The patient was evaluated in room C10. A complete history and physical examination was performed. 1702: Zofran Inj 4mg IV, Sodium Chloride 1000 ml @ 999 mls/hr IV. 2046: Zofran Inj 4mg IV. 2214: On reevaluation, the patient is doing well. I discussed the results and findings with the patient. She verbalized agreement of the treatment plan. The patient was discharged home. Medical Decision Differential considered: pancreatitis, hepatitis, or acute cholecystitis, AAA, UTI, pyelonephritis, kidney stones, appendicitis, diverticulitis, shingles, bowel obstruction mesenteric ischemia, intussusception,hernia, testicular torsion, ovarian torsion, ruptured ovarian cyst,ectopic , . This is a 31-year-old female who presents to the ED with a chief complaint of lower abdominal pain. The patient states that her symptoms started on , 2 days ago. She had some associated nausea and diarrhea but no vomiting. She denies any fevers, flank pains or other symptoms. Her physical exam revealed tenderness in the right lower quadrant. Exam was otherwise unremarkable. CBC is normal and test was negative. Complete metabolic panel is unremarkable. Lipase is negative. Pelvic ultrasound did not show any acute process. Urine did not show infection. CT scan of abdomen and pelvis did not show any acute process. The patient was told the results of the tests. She was treated with IV fluids and IV Zofran. She is felt to be stable for discharge and outpatient follow-up. Medication Reconcilliation Current Medication List: was personally reviewed by me Blood Pressure Screening Patient's blood pressure: Normal blood pressure Blood pressure disposition: Did not require urgent referral Impression Primary Impression: Lower abdominal pain Scribe Attestation The scribe's documentation has been prepared under my direction and personally reviewed by me in its entirety. I confirm that the note above accurately reflects all work, treatment, procedures, and medical decision making performed by me. Departure Information Dispostion Home / Self-Care Prescriptions No Active Prescriptions or Reported Meds Referrals No Doctor, Assigned (PCP) Patient Instructions Abdominal Pain, My [facility] Additional Instructions Follow-up with your doctor for further care and evaluation in 1-2 days. Return to the emergency department for worsening or new symptoms or any concerns. You have been examined and treated today on an emergency basis only. This is not a substitute for, or an effort to provide, complete comprehensive medical care. It is impossible to recognize and treat all injuries or illnesses in a single emergency department visit. It is therefore important that you follow up closely with your doctor. Call as soon as possible for an appointment.
[2017-01-27 22:30] VITALS: BP 96/64; PULSE 76; O2SAT 100
[2017-02-15] MEDS ORDERED: MULT-513 PO (21:08)
[2017-02-16] MEDS ORDERED: CEPH500C2 PO (00:55)
== END 2017-01-27 22:59 | disposition home or self-care (01) ==
LOC: C.EDB 16:45 → C.EDC 22:59
DX: R10.30 Lower abdominal pain, unspecified (principal); F32.9 Major depressive disorder, single episode, unspecified

== ENCOUNTER 2017-03-21 14:51 | Emergency (ER) | payer OTHER ==
[~2017-03-21] VITALS: Ht 165.1 cm; Wt 56.5 kg
[2017-03-21 14:58] VITALS: TEMP 36.3; Ht 165.1 cm; Wt 56.5 kg
[2017-03-21] MEDS ORDERED: ONDANSETRON INJ 2 MG/ML 2 ML VIAL IV STA (15:30)
--- NOTE | 2017-03-21 15:53 | EMERGENCY ROOM VISIT NOTE ---
History First contact with patient: 15:10 Chief Complaint: ILLNESS Stated Complaint: PAIN IN HEAD, HEART History of Present Illness The patient is a 32 year old female who presents to the Emergency Room with complaints of chills, nausea, and a dull, generalized headache. The patient states she was feeling fine last evening, but when getting into bed she began experiencing chills throughout her entire body, despite a warm house. This morning, the patient awoke this morning with the headache and nausea. She states she is experiencing some right upper quadrant abdominal pain with walking , and the pain does seem to radiate into the chest. This pain is only intermittent, and she describes it as very sharp and lasting only 1-2 seconds prior to improving. She states she has been nauseated, but denies any vomiting. Has taken no medication for her symptoms, and states she has had a decreased appetite, but was able to tolerate 2 pieces of chocolate earlier today. She has not eaten any other food or had any other liquid today. She states she has been feeling very anxious, and states "my blood is all over". The patient is a [employer] student, and is studying math. It is her finals week, and she does have finals every day this week. She did miss her test today. The patient is from [place], and she states her parents still live there. She states her mother is very ill, and it has been recommended that she go home to [place] to help care for her mother. The patient states her mother does when her to stay here and completed her education. The patient is feeling very stressed and anxious about this. She states she does feel that stress may have brought on some of her symptoms. The patient denies any chest pressure, difficulty breathing, coughing, congestion, sore throat, otalgia, diarrhea, constipation, generalized abdominal pain, or other concerning symptoms. Review of Systems A complete 10 point review of systems was reviewed with the patient with pertinent positives and negatives as per history of present illness. All else were negative. Past Medical/Surgical History Medical Problems: (1) History of - depression (2) No significant past medical history (3) Pneumonia, Unspecified Organism Surgical Problems: (1) No history of previous surgery Family History Patient reports no known family medical history. Social History Smoking Status: Never Smoker Alcohol Use: occasionally Drug Use: none Marital Status: single Housing Status: lives alone Occupation Status: [employer] student Current/Historical Medications Scheduled Ondasetron Odt (Zofran Odt), 4 MG SL Q6H Physical Exam Vital Signs Date Time Temp Pulse Resp B/P (MAP) Pulse Ox O2 Delivery O2 Flow Rate FiO2 03/21/17 18:21 70 14 98/65 100 03/21/17 14:58 36.3 68 18 111/75 97 Room Air Physical Exam VITALS: Vitals are noted on the nurse's note and reviewed by myself. Vital signs stable. GENERAL: This is a 32-year-old [place] female, in no acute distress, nondiaphoretic, well-developed well-nourished. SKIN: The skin was without rashes, erythema, edema, or bruising. There is no tenting of the skin. Capillary reflex less than 2 seconds. HEAD: Normocephalic atraumatic. EARS: External auditory canals clear, tympanic membranes pearly ruano without erythema or effusion bilaterally. EYES: Pupils equal round and reactive to light and accommodation. Conjunctivae without injection, sclerae without icterus. Extraocular movements intact. NOSE: Patent, turbinates without inflammation or discharge. No sinus tenderness. MOUTH: Mucous membranes moist. Tonsils are not enlarged. Pharynx without erythema or exudate. Uvula midline. Airway patent. Tongue does not deviate. NECK: Supple without nuchal rigidity. No lymphadenopathy. No thyromegaly. Cervical spine is nontender. No JVD. HEART: Regular rate and rhythm without murmurs gallops or rubs. LUNGS: Clear to auscultation bilaterally without wheezes, rales or rhonchi. No dullness to percussion. No retractions or accessory muscle use. ABDOMEN: Positive bowel sounds x 4. Normal tympanic percussion. Soft, nontender, without masses or organomegaly. Juan sign negative. No guarding or rebound tenderness. MUSCULOSKELETAL: No muscle atrophy, erythema, or edema noted. Full range of motion without joint tenderness in all extremities. No tenderness to palpation. Normal gait. Strength 5/5 throughout. NEURO: Patient was alert and oriented to person place and time. Normal mini- mental status examination. Normal cerebellar function. Normal sensation to light and sharp touch. No focal neurological deficits. Medical Decision & Procedures ER Provider Diagnostic Interpretation: CHEST ONE VIEW PORTABLE HISTORY: 32 years-old Female chills, right lower chest pain chills with acute atypical right lower chest pain COMPARISON: Chest radiograph 02/15/2017 TECHNIQUE: Portable AP view of the chest FINDINGS: Cardiomediastinal and hilar silhouettes are within normal limits. No pneumothorax, pleural effusion, focal airspace consolidation or overt pulmonary edema. Nodular opacity of the left lung base correlates with nipple shadow. Bones of the chest appear grossly intact. IMPRESSION: No acute cardiopulmonary process. The above report was generated using voice recognition software. It may contain grammatical, syntax or spelling errors. Electronically signed by: Felipe Xvaier M.D. 03/21/2017 3:50 PM Dictated Date/Time: 03/21/2017 3:49 PM CBC is the leukocytosis, anemia, thrombocytopenia. CMP did not show any renal, hepatic, or electrolyte abnormalities. Lipase was normal. Laboratory Results 03/21/17 15:55 Red Blood Count 4.24, Mean Corpuscular Volume 92.9, Mean Corpuscular Hemoglobin 30.9, Mean Corpuscular Hemoglobin Concent 33.2, Mean Platelet Volume 10.5, Neutrophils (%) (Auto) 46.1, Lymphocytes (%) (Auto) 43.3, Monocytes (%) (Auto) 9.4, Eosinophils (%) (Auto) 0.6, Basophils (%) (Auto) 0.4, Neutrophils # (Auto) 2.45, Lymphocytes # (Auto) 2.30, Monocytes # (Auto) 0.50, Eosinophils # (Auto) 0.03, Basophils # (Auto) 0.02 03/21/17 15:55 Test 03/21/17 15:55 White Blood Count 5.31 K/uL (4.8-10.8) Red Blood Count 4.24 M/uL (4.2-5.4) Hemoglobin 13.1 g/dL (12.0-16.0) Hematocrit 39.4 % (37-47) Mean Corpuscular Volume 92.9 fL (80-100) Mean Corpuscular Hemoglobin 30.9 pg (25-34) Mean Corpuscular Hemoglobin Concent 33.2 g/dl (32-36) Platelet Count 251 K/uL (130-400) Mean Platelet Volume 10.5 fL (7.4-10.4) Neutrophils (%) (Auto) 46.1 % Lymphocytes (%) (Auto) 43.3 % Monocytes (%) (Auto) 9.4 % Eosinophils (%) (Auto) 0.6 % Basophils (%) (Auto) 0.4 % Neutrophils # (Auto) 2.45 K/uL (1.4-6.5) Lymphocytes # (Auto) 2.30 K/uL (1.2-3.4) Monocytes # (Auto) 0.50 K/uL (0.11-0.59) Eosinophils # (Auto) 0.03 K/uL (0-0.5) Basophils # (Auto) 0.02 K/uL (0-0.2) RDW Standard Deviation 44.5 fL (36.4-46.3) RDW Coefficient of Variation 13.0 % (11.5-14.5) Immature Granulocyte % (Auto) 0.2 % Immature Granulocyte # (Auto) 0.01 K/uL (0.00-0.02) Anion Gap 6.0 mmol/L (3-11) Est Creatinine Clear Calc Drug Dose 117.0 ml/min Estimated GFR () 138.1 Estimated GFR (Non- 119.1 BUN/Creatinine Ratio 12.5 (10-20) Calcium Level 8.4 mg/dl (8.5-10.1) Total Bilirubin 0.3 mg/dl (0.2-1) Aspartate Amino Transf (AST/SGOT) 18 U/L (15-37) Alanine Aminotransferase (ALT/SGPT) 22 U/L (12-78) Alkaline Phosphatase 70 U/L (45-117) Total Protein 7.5 gm/dl (6.4-8.2) Albumin 4.1 gm/dl (3.4-5.0) Globulin 3.4 gm/dl (2.5-4.0) Albumin/Globulin Ratio 1.2 (0.9-2) Lipase 159 U/L (73-393) Medications Administered Medications (Trade) Dose Ordered Sig/Dawson Route Start Time Stop Time Status Last Admin Dose Admin Ondansetron HCl (Zofran Inj) 4 mg NOW STAT IV 03/21/17 15:30 03/21/17 15:33 DC 03/21/17 16:05 4 MG Medical Decision The patient was seen and evaluated as above. She was given 4 mg Zofran IV, and did note feeling improvement in her nausea. Based on patient's symptoms, I do suspect a viral gastroenteritis. Her workup was overall negative, and I do suspect a psychiatric component to the patient's complaints. The patient has been under a significant amount of stress with dejan, a sick mother in [place], and varying recommendations on whether she should go home or stay local. I discussed with the patient that I do recommend symptomatically treatment at this time. I did provide her with a prescription for Zofran, and encouraged lots of fluids and rest. The patient was given a note excusing her from school today, but I did advise her to finish her finals the rest of this week if she is feeling well-enough. I spent a significant amount of time discussing the viral etiology of illness and discussing with the patient that I do suspect a psychological component. I strongly encouraged the patient be seen by psychology and consider treatment for anxiety. Discharge instructions were reviewed, the patient was discharged home in good condition. Differential diagnosis includes cholecystitis, cholelithiasis, pancreatitis, viral gastroenteritis, hepatic disease, anxiety, upper respiratory infection, sinus infection, migraine, headache, intracranial hemorrhage, meningitis, encephalitis, malignancy, and others Medication Reconcilliation Current Medication List: was personally reviewed by me Blood Pressure Screening Patient's blood pressure: Normal blood pressure Impression Primary Impression: Viral gastroenteritis Additional Impression: Anxiety reaction Departure Information Dispostion Home / Self-Care Condition GOOD Prescriptions Ondasetron Odt (ZOFRAN ODT) 4 Mg Tab 4 MG SL Q6H for Nausea, #6 TAB Prov: Terese Murray PA-C 03/21/17 Referrals [facility] (PCP) Patient Instructions ED Gastroenteritis Viral, ED Stress React, My [facility] Additional Instructions You have been treated in the Emergency Department your Abdominal Pain. Laboratory results and imaging studies have ruled out any emergent causes for your abdominal pain which would warrant admission or surgery. As discussed, I do suspect a viral cause for your symptoms, which may be complicated by an underlying stress/anxiety reaction. I do encourage you to follow-up with S and consider counseling to help work through your stress. You have been prescribed Zofran to be used for any nausea or vomiting. Take as prescribed. For pain control, you can use the following [id number] medicines (if >12 yo): Ibuprofen(Motrin, Advil) may be used for fever or pain. Use 600mg every six hours as needed. Take with food. Avoid using more than 2400mg in a 24 hour period. Do not use 2400mg per day for more than three consecutive days without physician direction. Prolonged inappropriate use can lead to stomach upset or ulcers. (AND/OR) Acetaminophen(Tylenol) may be used for fever or pain. Use 1000mg every six hours as needed. Avoid using more than 3000mg in a 24 hour period. Drink plenty of water and stay well hydrated. As with any trip to the Emergency Department, you should follow-up with your Primary Care Provider from today's visit. Return to the emergency department if your symptoms persist despite treatment plan outlined above or if the following symptoms occur: increased fevers, chills , worsening nausea/vomiting, blood in your stool or urine. Problem Qualifiers
[2017-03-21 16:18] LABS: BASO % 0.4 %; BASO ABS # 0.02 K/uL (0-0.2); COMPLETE YES; EOS % 0.6 %; HEMATOCRIT 39.4 % (37-47); IG% 0.2 %; LYMPH % 43.3 %; MEAN CELL VOLUME 92.9 fL (80-100); MEAN CORPUSCULAR HEMOGLOBIN 30.9 pg (25-34); MEAN CORPUSCULAR HGB CONC 33.2 g/dl (32-36); MEAN PLATELET VOLUME 10.5 fL (7.4-10.4); MONO % 9.4 %; NEUT % 46.1 %; PLATELET COUNT 251 K/uL (130-400); RED BLOOD COUNT 4.24 M/uL (4.2-5.4); WHITE BLOOD COUNT 5.31 K/uL (4.8-10.8)
[2017-03-21 16:34] LABS: BUN/CREATININE RATIO 12.5 (10-20); CALCIUM 8.4 mg/dl (8.5-10.1); CREATININE 0.61 mg/dl (0.60-1.20); POTASSIUM 3.7 mmol/L (3.5-5.1)
[2017-03-21 16:37] LABS: ALB/GLOB RATIO 1.2 (0.9-2)
--- NOTE | 2017-03-21 16:58 | DIAGNOSTIC IMAGING REPORT ---
ABDOMINAL ULTRASOUND, RIGHT UPPER QUADRANT HISTORY: Right upper quadrant abdominal pain. COMPARISON: CT of the abdomen and pelvis January 27, 2017. FINDINGS: Liver morphology is normal. No hepatic lesions are present. There is no biliary ductal dilatation. The gallbladder is normal. There are no gallstones. The pancreatic body is normal. The head and tail are obscured. There is no right hydronephrosis. IMPRESSION: No significant abnormality identified within the right upper quadrant. Electronically signed by: Stephan Delarosa M.D. 03/21/2017 4:56 PM Dictated Date/Time: 03/21/2017 4:55 PM
[2017-03-21] MEDS ORDERED: ONDA4TAB10 SL (17:31)
[2017-03-21 18:21] VITALS: BP 98/65; PULSE 70; O2SAT 100
== END 2017-03-21 18:10 | disposition home or self-care (01) ==
LOC: C.EDB 14:52
DX: F41.1 Generalized anxiety disorder (principal); A08.4 Viral intestinal infection, unspecified

== ENCOUNTER 2017-03-26 23:02 | Emergency (ER) | payer OTHER ==
[~2017-03-26] VITALS: Ht 165.1 cm; Wt 57.5 kg
[~2017-03-26 23:02] MED LIST changes: -MULT-513 PO; +ONDA4TAB10 SL
[2017-03-26 23:07] VITALS: TEMP 36.6; Ht 165.1 cm; Wt 57.5 kg
--- NOTE | 2017-03-26 23:32 | EMERGENCY ROOM VISIT NOTE ---
History Report prepared by Miranda: Chica Tay Under the Supervision of: Dr. Jeffry Erwin M.D. First contact with patient: 23:12 Chief Complaint: MENTAL HEALTH EVALUATION Stated Complaint: EMOTIONAL ISSUES History of Present Illness The patient is a 32 year old female who presents to the Emergency Room for a mental health evaluation. The patient states she is feeling "bad" and "negative ". The patient notes having a family emergency this morning. She states heat her mom is "seriously ill" which made her feel "sad". She went to [facility] this afternoon and she states the counselor was concerned for her safety at home. The patient admits having suicidal thoughts and states she does not feel safe at home. The patient reports some shortness of breath and abdominal pain which she thinks may be a result fo her period. She denies alcohol or drug use. She is not currently on any medications. Source of History: patient Position: other (global) Quality: other (mental health evaluation) Modifying Factors (Relieving): other (none) Associated Symptoms: + SOB, + abdominal pain Review of Systems See HPI for pertinent positives & negatives. A total of 10 systems reviewed and were otherwise negative. Past Medical & Surgical Medical Problems: (1) History of - depression (2) No significant past medical history (3) Pneumonia, Unspecified Organism Surgical Problems: (1) No history of previous surgery Family History Patient reports no known family medical history. Social History Smoking Status: Never Smoker Alcohol Use: occasionally Drug Use: none Marital Status: single Housing Status: lives alone Occupation Status: [employer] student Current/Historical Medications No Active Prescriptions or Reported Meds Allergies Coded Allergies: No Known Allergies (Unverified , 03/27/17) Physical Exam Vital Signs Date Time Temp Pulse Resp B/P (MAP) Pulse Ox O2 Delivery O2 Flow Rate FiO2 03/27/17 01:35 70 18 113/76 99 03/26/17 23:07 36.6 66 18 117/73 98 Room Air Physical Exam GENERAL: Patient is depressed appearing and in no acute distress. Periodically crying, very soft spoken and difficult to understand due to low volume. HEENT: No acute trauma, normocephalic atraumatic, mucous membranes moist, no nasal congestion, no scleral icterus. NECK: No stridor, no adenopathy, no meningismus, trachea is midline. LUNGS: No dyspnea. Clear to auscultation and equal bilaterally. No wheeze, no rhonchi. HEART: Regular rate and rhythm. No murmurs, rubs, gallops appreciated. ABDOMEN: Soft, nontender, bowel sounds positive, no masses appreciated, no peritonitis. BACK: No midline tenderness, no CVA tenderness EXTREMITIES: Normal motion all extremities, no cyanosis, no edema. NEUROLOGIC: Alert and oriented, no acute motor or sensory deficits, no focal weakness, cranial nerves grossly intact. SKIN: No rash, no jaundice, no diaphoresis. Medical Decision & Procedures Laboratory Results 03/26/17 23:47 Red Blood Count 4.17, Mean Corpuscular Volume 92.1, Mean Corpuscular Hemoglobin 30.7, Mean Corpuscular Hemoglobin Concent 33.3, Mean Platelet Volume 10.2, Neutrophils (%) (Auto) 48.1, Lymphocytes (%) (Auto) 41.9, Monocytes (%) (Auto) 7.8, Eosinophils (%) (Auto) 1.7, Basophils (%) (Auto) 0.3, Neutrophils # (Auto) 3.17, Lymphocytes # (Auto) 2.76, Monocytes # (Auto) 0.51, Eosinophils # (Auto) 0.11, Basophils # (Auto) 0.02 03/26/17 23:47 Test 03/26/17 23:47 White Blood Count 6.58 K/uL (4.8-10.8) Red Blood Count 4.17 M/uL (4.2-5.4) Hemoglobin 12.8 g/dL (12.0-16.0) Hematocrit 38.4 % (37-47) Mean Corpuscular Volume 92.1 fL (80-100) Mean Corpuscular Hemoglobin 30.7 pg (25-34) Mean Corpuscular Hemoglobin Concent 33.3 g/dl (32-36) Platelet Count 224 K/uL (130-400) Mean Platelet Volume 10.2 fL (7.4-10.4) Neutrophils (%) (Auto) 48.1 % Lymphocytes (%) (Auto) 41.9 % Monocytes (%) (Auto) 7.8 % Eosinophils (%) (Auto) 1.7 % Basophils (%) (Auto) 0.3 % Neutrophils # (Auto) 3.17 K/uL (1.4-6.5) Lymphocytes # (Auto) 2.76 K/uL (1.2-3.4) Monocytes # (Auto) 0.51 K/uL (0.11-0.59) Eosinophils # (Auto) 0.11 K/uL (0-0.5) Basophils # (Auto) 0.02 K/uL (0-0.2) RDW Standard Deviation 43.1 fL (36.4-46.3) RDW Coefficient of Variation 12.9 % (11.5-14.5) Immature Granulocyte % (Auto) 0.2 % Immature Granulocyte # (Auto) 0.01 K/uL (0.00-0.02) Anion Gap 4.0 mmol/L (3-11) Est Creatinine Clear Calc Drug Dose 133.3 ml/min Estimated GFR () 143.7 Estimated GFR (Non- 124.0 BUN/Creatinine Ratio 25.1 (10-20) Calcium Level 9.0 mg/dl (8.5-10.1) Total Bilirubin 0.2 mg/dl (0.2-1) Aspartate Amino Transf (AST/SGOT) 17 U/L (15-37) Alanine Aminotransferase (ALT/SGPT) 23 U/L (12-78) Alkaline Phosphatase 78 U/L (45-117) Total Protein 7.7 gm/dl (6.4-8.2) Albumin 4.0 gm/dl (3.4-5.0) Globulin 3.7 gm/dl (2.5-4.0) Albumin/Globulin Ratio 1.1 (0.9-2) Thyroid Stimulating Hormone (TSH) 2.420 uIu/ml (0.300-4.500) Salicylates Level < 1.7 mg/dl (2.8-20) Acetaminophen Level < 2 ug/ml (10-30) Ethyl Alcohol mg/dL < 3.0 mg/dl (0-3) Laboratory results as reviewed by me. ED Course 2316: The patient was evaluated in room A5. A complete history and physical exam was performed. 0031: Mental Health Psych liaison is evaluating the patient. 0119: After long discussion with case management, the patient admits depression but feels safe at home now. Case management and the patient agree that admission is not necessary. The patient has an appointment at 8am with [facility]. She is looking forward to the future and to her trip to [place] in near future. 0121: Reevaluated the patient. Discussed results and discharge instructions: She verbalized understanding and agreement. The patient is ready for discharge. Medical Decision Differential: Mood Disorder, Overdose, Infectious, Electrolyte Abnormality, Cardiac, Hepatic, Endocrine, Toxicologic, Neurologic, amongst other pathologies entertained. 32 yr old female with depression from family issue she initially wasn't willing to discuss. She is tearful but mostly composed. Medically clear. She had very long discussion with Jt from psych case management. She feels safe for discharge and is stable. She has appointment with [facility] in a few hours. Is looking forward to heading to [place]. She has made no act to harm self. Aware RTED at any time if worsening or other concerns. Medication Reconcilliation Current Medication List: was personally reviewed by me Blood Pressure Screening Patient's blood pressure: Normal blood pressure Impression Primary Impression: Depression Scribe Attestation The scribe's documentation has been prepared under my direction and personally reviewed by me in its entirety. I confirm that the note above accurately reflects all work, treatment, procedures, and medical decision making performed by me. Departure Information Dispostion Home / Self-Care Prescriptions No Active Prescriptions or Reported Meds Referrals [facility] Forms HOME CARE DOCUMENTATION FORM, IMPORTANT VISIT INFORMATION Patient Instructions ED Depression, My [facility] Additional Instructions We are always here to help. If you feel you are at risk of harming yourself or others, return to ED or call 911. Keep your appointments as planned. Problem Qualifiers Primary Impression: Depression
[2017-03-26 23:56] LABS: BASO % 0.3 %; BASO ABS # 0.02 K/uL (0-0.2); COMPLETE YES; EOS % 1.7 %; HEMATOCRIT 38.4 % (37-47); IG% 0.2 %; LYMPH % 41.9 %; LYMPH ABS # 2.76 K/uL (1.2-3.4); MEAN CELL VOLUME 92.1 fL (80-100); MEAN CORPUSCULAR HEMOGLOBIN 30.7 pg (25-34); MEAN CORPUSCULAR HGB CONC 33.3 g/dl (32-36); MEAN PLATELET VOLUME 10.2 fL (7.4-10.4); MONO % 7.8 %; NEUT % 48.1 %; PLATELET COUNT 224 K/uL (130-400); RED BLOOD COUNT 4.17 M/uL (4.2-5.4); WHITE BLOOD COUNT 6.58 K/uL (4.8-10.8)
[2017-03-27 00:19] LABS: BUN/CREATININE RATIO 25.1 (10-20); CREATININE 0.54 mg/dl (0.60-1.20); POTASSIUM 3.5 mmol/L (3.5-5.1)
[2017-03-27 00:29] LABS: ALB/GLOB RATIO 1.1 (0.9-2); THYROID STIMULATING HORMONE 2.42 uIu/ml (0.300-4.500)
[2017-03-27 00:42] LABS: ACETAMINOPHEN < 2 ug/ml (10-30)
[2017-03-27 01:35] VITALS: BP 113/76; PULSE 70; O2SAT 99
== END 2017-03-27 01:36 | disposition home or self-care (01) ==
LOC: C.EDB 23:03 → C.EDA 03-27 01:36
DX: F32.9 Major depressive disorder, single episode, unspecified (principal)

== ENCOUNTER 2017-04-26 22:25 | Emergency (ER) | payer OTHER ==
[~2017-04-26] VITALS: Ht 165.1 cm; Wt 57.5 kg
[2017-04-26 22:39] VITALS: TEMP 36.5; Ht 165.1 cm; Wt 57.5 kg
[2017-04-27] MEDS ORDERED: SODIUM CHLORIDE 0.9% 1000ML 1,000 ML IV STA (00:05)
[2017-04-27] MEDS ORDERED: ONDANSETRON INJ 2 MG/ML 2 ML VIAL IV STA ×2 (00:05→01:57)
--- NOTE | 2017-04-27 00:21 | EMERGENCY ROOM VISIT NOTE ---
History Report prepared by Miranda: Taye Blair Under the Supervision of: Dr. Laureen Lorenzo D.O. First contact with patient: 23:32 Chief Complaint: ABDOMINAL PAIN Stated Complaint: PAIN IN STOMACH AND VOMITING Nursing Triage Summary: C/O nausea and vomitting since this afternoon. History of Present Illness The patient is a 32 year old female who presents to the Emergency Room with complaints of nausea that began this afternoon. After the patient ate earlier today, she began to feel nauseated and experienced multiple episodes of vomiting throughout the day. She then started to have generalized abdominal pain with a headache. She then felt the need to have a bowel movement which she states was diarrhea. She currently feels hot as though she has a fever. This is the first time the patient has vomited this much in succession. She denies any lightheadedness, chest pain, shortness of breath, leg pain/swelling, melena, hematochezia, or abnormal urinary symptoms. She states that she is almost finished with her menstrual cycle. Source of History: patient Onset: this afternoon Position: other (GI) Symptom Intensity: moderate Quality: other (nausea) Timing: constant Associated Symptoms: + vomiting, + abdominal pain (generalized), + diarrhea , No chest pain, No SOB, No melena, No hematochezia, No urinary symptoms Note: She feels hot as if she has a fever. Review of Systems See HPI for pertinent positives & negatives. A total of 10 systems reviewed and were otherwise negative. Past Medical & Surgical Medical Problems: (1) History of - depression (2) No significant past medical history (3) Pneumonia, Unspecified Organism Surgical Problems: (1) No history of previous surgery Family History Patient reports no known family medical history. Social History Smoking Status: Never Smoker Alcohol Use: occasionally Drug Use: none Marital Status: single Housing Status: lives alone Occupation Status: [employer] student Current/Historical Medications No Active Prescriptions or Reported Meds Allergies Coded Allergies: No Known Allergies (Unverified , 04/26/17) Physical Exam Vital Signs Date Time Temp Pulse Resp B/P (MAP) Pulse Ox O2 Delivery O2 Flow Rate FiO2 04/27/17 03:10 61 16 102/66 99 04/27/17 00:41 59 16 106/65 97 Room Air 04/26/17 22:39 36.5 66 18 112/78 99 Room Air Physical Exam GENERAL: alert, well appearing, well nourished, no distress, non-toxic EYE EXAM: normal conjunctiva, PERRL and EOM's grossly intact OROPHARYNX: no exudate, no erythema, lips, buccal mucosa, and tongue normal and mucous membranes are moist NECK: supple, no nuchal rigidity, no adenopathy, non-tender LUNGS: Clear to auscultation. Normal chest wall mechanics HEART: no murmurs, S1 normal and S2 normal ABDOMEN: abdomen soft, non-tender, normo-active bowel sounds, no masses, no rebound or guarding. BACK: Back is symmetrical on inspection and there is no deformity, no midline tenderness, no CVA tenderness. SKIN: Pale, no rashes and no bruising UPPER EXTREMITIES: upper extremities are grossly normal. LOWER EXTREMITIES: No pitting edema. NEURO EXAM: Normal sensorium, cranial nerves II-XII grossly intact, normal speech, no gross weakness of arms, no gross weakness of legs. Medical Decision & Procedures ER Provider Diagnostic Interpretation: Radiology results have been interpreted by me. Single-view Chest X-RAY: No cardiomegaly, no effusion, no widened mediastinum, no focal infiltrate Two-view Abdomen X-RAY: Scattered stool, no definite SBO, no free air Per me Laboratory Results 04/27/17 00:10 Red Blood Count 4.25, Mean Corpuscular Volume 91.1, Mean Corpuscular Hemoglobin 31.1, Mean Corpuscular Hemoglobin Concent 34.1, Mean Platelet Volume 10.5, Neutrophils (%) (Auto) 69.4, Lymphocytes (%) (Auto) 21.7, Monocytes (%) (Auto) 8.1, Eosinophils (%) (Auto) 0.4, Basophils (%) (Auto) 0.3, Neutrophils # (Auto) 4.88, Lymphocytes # (Auto) 1.53, Monocytes # (Auto) 0.57, Eosinophils # (Auto) 0.03, Basophils # (Auto) 0.02 04/27/17 00:10 Test 04/27/17 00:10 04/27/17 00:45 White Blood Count 7.04 K/uL (4.8-10.8) Red Blood Count 4.25 M/uL (4.2-5.4) Hemoglobin 13.2 g/dL (12.0-16.0) Hematocrit 38.7 % (37-47) Mean Corpuscular Volume 91.1 fL (80-100) Mean Corpuscular Hemoglobin 31.1 pg (25-34) Mean Corpuscular Hemoglobin Concent 34.1 g/dl (32-36) Platelet Count 229 K/uL (130-400) Mean Platelet Volume 10.5 fL (7.4-10.4) Neutrophils (%) (Auto) 69.4 % Lymphocytes (%) (Auto) 21.7 % Monocytes (%) (Auto) 8.1 % Eosinophils (%) (Auto) 0.4 % Basophils (%) (Auto) 0.3 % Neutrophils # (Auto) 4.88 K/uL (1.4-6.5) Lymphocytes # (Auto) 1.53 K/uL (1.2-3.4) Monocytes # (Auto) 0.57 K/uL (0.11-0.59) Eosinophils # (Auto) 0.03 K/uL (0-0.5) Basophils # (Auto) 0.02 K/uL (0-0.2) RDW Standard Deviation 42.8 fL (36.4-46.3) RDW Coefficient of Variation 12.8 % (11.5-14.5) Immature Granulocyte % (Auto) 0.1 % Immature Granulocyte # (Auto) 0.01 K/uL (0.00-0.02) Anion Gap 4.0 mmol/L (3-11) Est Creatinine Clear Calc Drug Dose 135.9 ml/min Estimated GFR () 144.6 Estimated GFR (Non- 124.8 BUN/Creatinine Ratio 20.5 (10-20) Calcium Level 8.9 mg/dl (8.5-10.1) Total Bilirubin 0.6 mg/dl (0.2-1) Aspartate Amino Transf (AST/SGOT) 15 U/L (15-37) Alanine Aminotransferase (ALT/SGPT) 23 U/L (12-78) Alkaline Phosphatase 78 U/L (45-117) Total Protein 7.8 gm/dl (6.4-8.2) Albumin 4.1 gm/dl (3.4-5.0) Globulin 3.7 gm/dl (2.5-4.0) Albumin/Globulin Ratio 1.1 (0.9-2) Lipase 123 U/L (73-393) Human Chorionic Gonadotropin, Qual NEG (NEG) Influenza Type A Antigen Neg for Influ A (NEG) Influenza Type B Antigen Neg for Influ B (NEG) Laboratory results per my review. Medications Administered Medications (Trade) Dose Ordered Sig/Dawson Route Start Time Stop Time Status Last Admin Dose Admin Sodium Chloride 1,000 ml @ 999 mls/hr Q1H1M STAT IV 04/27/17 00:05 04/27/17 01:05 DC 04/27/17 00:42 999 MLS/HR Ondansetron HCl (Zofran Inj) 4 mg NOW STAT IV 04/27/17 00:05 04/27/17 00:07 DC 04/27/17 00:42 4 MG Ondansetron HCl (Zofran Inj) 4 mg NOW STAT IV 04/27/17 01:57 04/27/17 01:58 DC 04/27/17 01:30 4 MG Ondansetron HCl (ZOFRAN ODT 4MG Home Pack) 1 homepack UD ONCE PO 04/27/17 02:45 04/27/17 02:46 DC 04/27/17 03:03 1 HOMEPACK ED Course 2332: The patient was evaluated in room A12. A complete history and physical exam was performed. 0005: Ordered Zofran Inj 4 mg IV, Sodium Chloride 1000 ml @ 999 mls/hr IV 0137: I updated the patient on her results at this time. She is still nauseated. 0157: Ordered Zofran Inj 4 mg IV 0234: Upon reevaluation, the patient is feeling better. She is tolerating PO intake of warm water. She denies any nausea at this time. 0245: Ordered Ondansetron HCl 1 homepack PO 0250: Upon reevaluation, the patient is feeling better. I discussed the findings and the treatment plan with the patient. She verbalizes agreement and understanding. She was discharged home. Medical Decision Differential diagnosis: Etiologies such as gastroenteritis, food borne illness, infections, appendicitis , diverticulitis, inflammatory bowel disease, obstruction, GI bleed, biliary pathology, as well as others were entertained. Pt most likely with food borne illness manifesting in n/v/d. Abdominal pain began after vomiting, doubt additional Gi pathology. Pt improved here with meds and IVF, was able to start tolerating sips po. VS stable throughout. Discussed hydration, bland diet, sx to watch/return for, she verbalized understanding and was agreeable with plan. Medication Reconcilliation Current Medication List: was personally reviewed by me Blood Pressure Screening Patient's blood pressure: Normal blood pressure Blood pressure disposition: Did not require urgent referral Impression Primary Impression: Nausea & vomiting Additional Impression: Abdominal pain Scribe Attestation The scribe's documentation has been prepared under my direction and personally reviewed by me in its entirety. I confirm that the note above accurately reflects all work, treatment, procedures, and medical decision making performed by me. Departure Information Dispostion Home / Self-Care Prescriptions No Active Prescriptions or Reported Meds Referrals [facility] (PCP) Forms Call Back Authorization, HOME CARE DOCUMENTATION FORM, IMPORTANT VISIT INFORMATION Patient Instructions My [facility] Additional Instructions Please sip clear liquids at frequent intervals to stay well-hydrated. These eat a bland diet as tolerated until you're feeling better and then you may return to normal foods. If you develop any recurrent vomiting, develop diarrhea , fevers or chills, worsening abdominal pain, or you have any other new or concerning symptoms, please return to the emergency room. Problem Qualifiers Primary Impression: Nausea & vomiting Vomiting type: unspecified Vomiting Intractability: non-intractable Qualified Codes: R11.2 - Nausea with vomiting, unspecified Additional Impression: Abdominal pain Abdominal location: upper abdomen, unspecified Qualified Codes: R10.10 - Upper abdominal pain, unspecified
[2017-04-27 00:25] LABS: BASO % 0.3 %; BASO ABS # 0.02 K/uL (0-0.2); EOS % 0.4 %; EOS ABS # 0.03 K/uL (0-0.5); HEMATOCRIT 38.7 % (37-47); HEMOGLOBIN 13.2 g/dL (12.0-16.0); IG# 0.01 K/uL (0.00-0.02); LYMPH % 21.7 %; LYMPH ABS # 1.53 K/uL (1.2-3.4); MEAN CELL VOLUME 91.1 fL (80-100); MEAN CORPUSCULAR HEMOGLOBIN 31.1 pg (25-34); MEAN CORPUSCULAR HGB CONC 34.1 g/dl (32-36); MEAN PLATELET VOLUME 10.5 fL (7.4-10.4); MONO % 8.1 %; MONO ABS # 0.57 K/uL (0.11-0.59); NEUT % 69.4 %; NEUT ABS # 4.88 K/uL (1.4-6.5); PLATELET COUNT 229 K/uL (130-400); RED CELL DISTRIBUTION WIDTH CV 12.8 % (11.5-14.5); RED CELL DISTRIBUTION WIDTH SD 42.8 fL (36.4-46.3); WHITE BLOOD COUNT 7.04 K/uL (4.8-10.8)
[2017-04-27 00:44] LABS: ALBUMIN 4.1 gm/dl (3.4-5.0); CALCIUM 8.9 mg/dl (8.5-10.1); CREATININE 0.53 mg/dl (0.60-1.20); POTASSIUM 3.9 mmol/L (3.5-5.1)
[2017-04-27 00:52] LABS: TOTAL PROTEIN 7.8 gm/dl (6.4-8.2)
[2017-04-27 01:18] LABS: INFLUENZA B ANTIGEN Neg for Influ B (NEG)
[2017-04-27] MEDS ORDERED: ONDANSETRON HOME PACK 4MG OD TAB PO ONE (02:45)
[2017-04-27 03:10] VITALS: BP 102/66; PULSE 61; O2SAT 99
--- NOTE | 2017-04-27 07:32 | DIAGNOSTIC IMAGING REPORT ---
CHEST AND ABDOMEN 2 VIEWS HISTORY: Nausea. Vomiting. COMPARISON: Chest 03/21/2017. Abdomen and pelvis CT 01/27/2017. FINDINGS: The lungs are clear. The cardiomediastinal silhouette is within normal limits. There is no pneumoperitoneum or pneumatosis. The bowel gas pattern is unremarkable. No evidence for bowel obstruction. No pathologic calcifications. IMPRESSION: No acute cardiopulmonary process. No evidence for bowel obstruction. Electronically signed by: Anthony Gross M.D. 04/27/2017 7:30 AM Dictated Date/Time: 04/27/2017 7:29 AM
== END 2017-04-27 03:05 | disposition home or self-care (01) ==
LOC: C.EDB 22:26 → C.EDA 04-27 03:05
DX: R10.84 Generalized abdominal pain (principal); R11.2 Nausea with vomiting, unspecified

== ENCOUNTER 2017-05-23 18:13 | Emergency (ER) | payer OTHER ==
[~2017-05-23] VITALS: Ht 165.1 cm; Wt 57.0 kg
[2017-05-23 18:31] VITALS: Ht 165.1 cm; Wt 57.0 kg
[2017-05-23] MEDS ORDERED: ACETAMINOPHEN 500 MG TAB PO STA (19:23)
[2017-05-23] MEDS ORDERED: COUGH DROP (SUGAR FREE) LOZ 24 LOZ/1 BOX LOZ STA (19:23)
[2017-05-23] MEDS ORDERED: IBUPROFEN 600 MG TAB PO STA (19:23)
[2017-05-23 20:02] LABS: INFLUENZA B ANTIGEN Neg for Influ B (NEG)
--- NOTE | 2017-05-23 20:52 | EMERGENCY ROOM VISIT NOTE ---
History Report prepared by Miranda: Kaiser Landeros Under the Supervision of: Dr. Ad Wakefield M.D. First contact with patient: 19:05 Chief Complaint: FEVER Stated Complaint: MORALES, FEEL HOT ALL OVER History of Present Illness The patient is a 32 year old east female with a past medical history of depression and pneumonia who presents to the ED with a cc of persistent generalized illness beginning a few days ago. Positive fevers, dry cough, headache, lightheadedness, generalized weakness, and body aches. Localizes her headache to her forehead. Patient vomited once yesterday. Has had decreased appetite recently. Notes that her friends are currently sick with similar symptoms. No recent antibiotic use. Her LNMP ended about a week ago. Negative back pain. Notes that she occasionally has some abdominal pain. Source of History: patient Onset: A few days ago Position: other (generalized) Quality: other (illness) Timing: other (persistent) Associated Symptoms: + fevers, + headache, + cough (dry), + vomiting (one episode), + abdominal pain (occasionally), + weakness (generalized) Note: Positive lightheadedness, and body aches Review of Systems See HPI for pertinent positives and negatives. A total of ten systems were reviewed and were otherwise negative. Past Medical & Surgical Medical Problems: (1) History of - depression (2) No significant past medical history (3) Pneumonia, Unspecified Organism Surgical Problems: (1) No history of previous surgery Family History Patient reports no known family medical history. Social History Smoking Status: Never Smoker Alcohol Use: occasionally Drug Use: none Marital Status: single Housing Status: lives alone Occupation Status: [employer] student Current/Historical Medications No Active Prescriptions or Reported Meds Allergies Coded Allergies: No Known Allergies (Unverified , 04/26/17) Physical Exam Vital Signs Date Time Temp Pulse Resp B/P (MAP) Pulse Ox O2 Delivery O2 Flow Rate FiO2 05/23/17 21:02 36.9 89 19 107/72 96 05/23/17 20:18 36.9 89 19 107/72 96 Room Air 05/23/17 18:31 38.2 103 17 111/59 100 Room Air Physical Exam GENERAL: Awake, alert, well-appearing, NAD HENT: Normocephalic, atraumatic. EYES: Normal conjunctiva. Sclera non-icteric. NECK: Supple. No nuchal rigidity. FROM. RESPIRATORY: CTAB, no rhonchi, wheezing, crackles CARDIAC: Tachycardic rate with a regular rhythm, no MRG ABDOMEN: Soft, BS+. No CVA TTP. Mild abdominal discomfort. Negative obturators and psoas. MSK: No chest wall TTP, no LE edema NEURO: GCS 15, CN 2-12 intact, moves all 4s on command SKIN: No rash or jaundice noted. Medical Decision & Procedures Laboratory Results Test 05/23/17 19:23 Urine Color YELLOW Urine Appearance CLOUDY (CLEAR) Urine pH 8.0 (4.5-7.5) Urine Specific [place] 1.022 (1.000-1.030) Urine Protein NEG (NEG) Urine Glucose (UA) NEG (NEG) Urine Ketones NEG (NEG) Urine Occult Blood NEG (NEG) Urine Nitrite NEG (NEG) Urine Bilirubin NEG (NEG) Urine Urobilinogen NEG (NEG) Urine Leukocyte Esterase MODERATE (NEG) Urine WBC (Auto) 10-30 /hpf (0-5) Urine RBC (Auto) 0-4 /hpf (0-4) Urine Hyaline Casts (Auto) 1-5 /lpf (0-5) Urine Epithelial Cells (Auto) >30 /lpf (0-5) Urine Bacteria (Auto) NEG (NEG) Urine Test NEG (NEG) Influenza Type A Antigen Neg for Influ A (NEG) Influenza Type B Antigen Neg for Influ B (NEG) Date/Time Source Procedure Growth Status 05/23/17 19:23 Urine , Clean Catch Urine Culture - Final THREE TYPES OF ORGANISMS PRESENT, ALL... Complete Laboratory results reviewed by me Medications Administered Medications (Trade) Dose Ordered Sig/Dawson Route Start Time Stop Time Status Last Admin Dose Admin Ibuprofen (Motrin Tab) 800 mg NOW STAT PO 05/23/17 19:23 05/23/17 19:25 DC 05/23/17 19:31 800 MG Acetaminophen (Tylenol Tab) 1,000 mg NOW STAT PO 05/23/17 19:23 05/23/17 19:25 DC 05/23/17 19:31 1,000 MG Menthol (Nice Leisa) 1 leisa NOW STAT LEISA 05/23/17 19:23 05/23/17 19:25 DC 05/23/17 19:23 1 LEISA ED Course 190: The patient was evaluated in room A10. A complete history and physical exam was performed. 1914: The patient is refusing blood work. 2019: I reevaluated the patient. Discussed results and discharge instructions: she verbalized understanding and agreement. The patient is ready for discharge. Medical Decision The patient is a 32 year old [place] female with a past medical history of depression and pneumonia who presents to the ED with a cc of persistent generalized illness beginning a few days ago. Differential diagnosis: Etiologies such as viral syndrome, otitis, pharyngitis, pneumonia, influenza, meningitis, urinary tract infection, sepsis, bacteremia, as well as others were entertained. Patient seen and evaluated at bedside. Complains of flu like symptoms. Mild cough. Non productive. No stridor, well appearing. Able to tolerate PO. Declined blood work at this time. Given meds, PO fluids, and flu swab. Flu neg. UA neg for infection. UPT neg. Patient again well appearing. Tachycardia resolved. No signs of meningismus. Believe she is safe and suitable for outpatient f/u and trx. Results conveyed to patient and all questions answered. D/c'ed to home. Medication Reconcilliation Current Medication List: was personally reviewed by me Blood Pressure Screening Patient's blood pressure: Normal blood pressure Blood pressure disposition: Did not require urgent referral Impression Primary Impression: Influenza-like symptoms Additional Impression: Fever Scribe Attestation The scribe's documentation has been prepared under my direction and personally reviewed by me in its entirety. I confirm that the note above accurately reflects all work, treatment, procedures, and medical decision making performed by me. Departure Information Dispostion Home / Self-Care Prescriptions No Active Prescriptions or Reported Meds Referrals [facility] (PCP) Patient Instructions My [facility] Additional Instructions Please return to the emergency department if you have worsening or recurrent symptoms not amenable to at-home treatment. Please call for a follow-up appointment with her primary care physician. Please take your medications as prescribed. If you have other concerns and/or complaints please feel free to also call your primary care physician's office or return the ED for further evaluation, management, and treatment. You may take 600 mg Ibuprofen every 6 hours as needed for pain with food for no more than 2 consecutive days. You may take tylenol 1000 mg every 6 hours as needed for pain. You may take motrin and tylenol separately or at the same time. Take your medications as prescribed. You have been examined and treated today on an emergency basis only. This is not a substitute for, or an effort to provide, complete comprehensive medical care. It is impossible to recognize and treat all injuries or illnesses in a single emergency department visit. It is therefore important that you follow up closely with [facility], your PCP, and/or your specialist(s). Call as soon as possible for an appointment. Thank you for your time and consideration. I look forward to speaking with you again soon. Please don't hesitate to call us if you have any questions. Problem Qualifiers Additional Impression: Fever Fever type: unspecified Qualified Codes: R50.9 - Fever, unspecified
[2017-05-23 21:02] VITALS: BP 107/72; PULSE 89; TEMP 36.9; O2SAT 96
== END 2017-05-23 21:03 | disposition home or self-care (01) ==
LOC: C.EDB 18:15 → C.EDA 21:03
DX: R50.9 Fever, unspecified (principal); R05 Cough; R51 Headache; R42 Dizziness and giddiness; R53.1 Weakness; F32.9 Major depressive disorder, single episode, unspecified; Z87.01 Personal history of pneumonia (recurrent)

== ENCOUNTER 2017-07-04 18:00 | Emergency (ER) | payer OTHER ==
[2017-07-04] MEDS ORDERED: ONDANSETRON 2MG ODT ONE (18:48)
[2017-07-04] MEDS ORDERED: ONDANSETRON HOME PACK 4MG OD TAB ONE (21:26)
--- NOTE | 2017-07-05 00:06 | EMERGENCY ROOM VISIT NOTE ---
History Report prepared by Miranda: Shana Godfrey Under the Supervision of: Dr. Buddy Arellano M.D. First contact with patient: 22:48 Chief Complaint: ABDOMINAL PAIN Stated Complaint: ABDOMINAL PAIN, VOMITING, MORALES SYMPTOMS History of Present Illness The patient is a 32 year old female who presents to the Emergency Room with complaints of constant abdominal pain starting this morning. Yesterday, she started with some intermittent abdominal pain in the RLQ. This morning, the pain became constant and spread to the LLQ. She currently rates her discomfort as a 7/10 in severity. She has had this kind of pain before but it has not lasted this long. She has not taken anything for her pain. She also reports nausea and vomiting. She last vomited this morning. She has had a decreased appetite. She has felt dizzy and has had a headache. She reports a subjective fever and cold feet. Her last normal menstrual period was 1.5 weeks ago. She denies any previous surgeries. She is a [employer] student. Pt denies LOC, diaphoresis , visual changes, neck pain, chest pain, breathing difficulties, back pain, melena, hematochezia, urinary symptoms, numbness, weakness, lymphadenopathy, rash, or other complaints. Source of History: patient Onset: this morning Position: abdomen Symptom Intensity: 7/10 Quality: other (pain) Timing: constant Associated Symptoms: + fevers, + headache, + nausea, + vomiting Review of Systems See HPI for pertinent positives and negatives. A total of ten systems were reviewed and were otherwise negative. Past Medical & Surgical Medical Problems: (1) History of - depression (2) No significant past medical history (3) Pneumonia, Unspecified Organism Surgical Problems: (1) No history of previous surgery Family History Patient reports no known family medical history. Social History Smoking Status: Never Smoker Alcohol Use: occasionally Drug Use: none Marital Status: single Housing Status: lives alone Occupation Status: [employer] student Current/Historical Medications No Active Prescriptions or Reported Meds Allergies Coded Allergies: No Known Allergies (Unverified , 04/26/17) Physical Exam Physical Exam GENERAL: Awake, alert, well-appearing, in no distress HENT: Normocephalic, atraumatic. Oropharynx unremarkable. EYES: Normal conjunctiva. Sclera non-icteric. NECK: Supple. No nuchal rigidity. FROM. No masses. RESPIRATORY: Clear to auscultation. No wheezes. No rales. Normal respiratory effort. CARDIAC: Normal rate. Normal rhythm. No murmurs. No rubs. Extremities warm and well perfused. Pulses equal. No JVD. GI: Soft, non-distended. Bilateral lower abdominal tenderness to palpation, worse in the RLQ. No rebound or guarding. No masses. RECTAL: Deferred. MUSCULOSKELETAL: Atraumatic. Chest examination reveals no tenderness. The back is symmetrical on inspection without obvious abnormality. There is right CVA tenderness to palpation. No joint edema. LOWER EXTREMITIES: Calves are equal size bilaterally and non-tender. No edema. No discoloration. NEURO: Normal sensorium. No sensory or motor deficits noted. SKIN: No rash or jaundice noted. Medical Decision & Procedures ER Provider Diagnostic Interpretation: Radiology results as stated below per my review and radiologist interpretation: CT abdomen & pelvis: No stones. Normal appendix. Has fluid in pelvis likely physiologic. Laboratory Results Test 07/04/17 00:00 Urine Color YELLOW Urine Appearance CLEAR (CLEAR) Urine pH 5.0 (4.5-7.5) Urine Specific [place] 1.021 (1.000-1.030) Urine Protein NEG (NEG) Urine Glucose (UA) NEG (NEG) Urine Ketones NEG (NEG) Urine Occult Blood NEG (NEG) Urine Nitrite NEG (NEG) Urine Bilirubin NEG (NEG) Urine Urobilinogen NEG (NEG) Urine Leukocyte Esterase NEG (NEG) Urine Test NEG (NEG) Laboratory results reviewed by me ED Course 1835: The patient was evaluated in room A10. A complete history and physical exam was performed. 2100: I reevaluated the patient. She is feeling a little better. I discussed results and discharge instructions: She verbalized understanding and agreement. The patient is ready for discharge. Medical Decision Triage Nursing notes reviewed and agree them. The patient's history was concerning for abdominal pain. Differential diagnosis: Etiologies such as appendicitis, diverticulitis, PUD, biliary pathology, UTI, pancreatitis, obstruction, mesenteric ischemia, aortic pathology, infections, inflammatory bowel disease, renal colic, ovarian pathology, , PID, as well as others were entertained. Physical examination findings: As above. No rebound. No guarding. ER treatment provided: Oral Zofran. On reassessment the patient felt better. Diagnostics interpreted by me: The labs revealed unremarkable urine dip. Negative test. Patient declined laboratory testing. I discussed the risks and benefits extensively about not performing laboratory tests and how it can limit accurate diagnosis. I gave my usual and customary discussion regarding this issue. Imaging studies: Report of CT scan as above. Actual images not available. The patient had a negative test, negative urine dip and a normal CAT scan. She was feeling better after oral Zofran but still had some discomfort. There is no evidence of emergent pathology per the radiology report. The patient was informed about the limitations given the lack of laboratory diagnostics. She was doing better without analgesia and was recommended to use [id number] medication. She was given a Zofran home pack. I wanted her to follow up with [facility] tomorrow for recheck since the evaluation today did have some limits. She agreed. If she worsens or other symptoms develop she will return to the ER for a recheck. We had a long discussion about this visit. By the evaluation outlined above emergent etiologies such as appendicitis, diverticulitis, PUD, biliary pathology, UTI, pancreatitis, obstruction, mesenteric ischemia, aortic pathology, infections, inflammatory bowel disease, renal colic, as well as others were deemed relatively unlikely. The patient was informed about the findings as listed above. All questions were answered and she was pleased with the treatment. Return instructions were outlined and the patient was discharged in stable condition. Outpatient prescription management: Zofran home pack Referral: The patient was referred back to [facility] tomorrow for a recheck of the current condition. Impression Primary Impression: Nausea Additional Impression: Lower abdominal pain Scribe Attestation The scribe's documentation has been prepared under my direction and personally reviewed by me in its entirety. I confirm that the note above accurately reflects all work, treatment, procedures, and medical decision making performed by me. Departure Information Dispostion Home / Self-Care Prescriptions No Active Prescriptions or Reported Meds Referrals [facility] (PCP) Patient Instructions My [facility] Problem Qualifiers
--- NOTE | 2017-07-05 07:52 | DIAGNOSTIC IMAGING REPORT ---
CT SCAN OF THE ABDOMEN AND PELVIS WITHOUT IV CONTRAST CLINICAL HISTORY: Right lower quadrant abdominal pain COMPARISON STUDY: Abdominal CT dated 01/27/2017. TECHNIQUE: CT scan of the abdomen and pelvis is performed from the lung bases to the proximal femora. Images are reviewed in the axial, sagittal, and coronal planes. IV contrast was not administered for this examination as per the referring clinician. Note that the examination was performed in suboptimal fashion without oral and IV contrast. A dose lowering technique was utilized adhering to the principles of ALARA. FINDINGS: Lung bases: The heart is normal in size and without pericardial effusion. The lung bases are clear. Liver: The unenhanced liver is normal in size, contour, and attenuation. There is no intrahepatic biliary ductal dilatation. Gallbladder: Unremarkable. Spleen: Normal in size and attenuation. Pancreas: Unremarkable. Adrenal glands: Unremarkable. Kidneys: The unenhanced kidneys are normal in size and without hydronephrosis. There are no renal calculi identified. There is no evidence of contour deforming renal mass lesion. Abdominal vasculature: The abdominal aorta is normal in course and caliber. Bowel: The small bowel and colon are normal in course and caliber. The appendix is well-visualized and normal. Peritoneum: There is no intraperitoneal free air or abdominal ascites. There is a small fat-containing umbilical hernia. Lymphadenopathy: None. Pelvic viscera: The bladder, uterus, and adnexa are normal as visualized. Bilateral ovarian follicles are identified. There is a small volume of free fluid in the cul-de-sac. Skeletal structures: No lytic or blastic lesions are seen. IMPRESSION: 1. There are no acute infectious or inflammatory findings in the abdomen or pelvis. 2. A small volume of free fluid in the cul-de-sac is likely within physiologic limits. Electronically signed by: Jeffrey Lance M.D. 07/05/2017 7:51 AM Dictated Date/Time: 07/05/2017 7:48 AM
== END 2017-07-04 21:33 | disposition home or self-care (01) ==
LOC: C.EDA 18:00
DX: R11.2 Nausea with vomiting, unspecified (principal); R10.30 Lower abdominal pain, unspecified; R42 Dizziness and giddiness; R51 Headache; R50.9 Fever, unspecified